=== PATIENT | female | born 1995 | race Hispanic/Latino ===

== ENCOUNTER 2018-09-10 17:41 | Emergency (ER) | payer OTHER, SELFPAY ==
[2018-09-10] MEDS ORDERED: ONDANSETRON 4 MG/2 ML VIAL ONE (18:26)
[2018-09-10] MEDS ORDERED: FAMOTIDINE 20 MG/2 ML VIAL IV ONE (18:26)
[2018-09-10] MEDS ORDERED: NA CHLORIDE 0.9% 1,000 ML ONE (18:26)
[2018-09-10 18:44] LABS: Absolute Lymphocytes (CBC) 3.5 K/uL (0.7-4.9); Absolute Monocytes 0.9 K/uL (0.1-1.3); Absolute Neutrophil 8.6 K/uL (1.8-8.0); Basophils % 1.1 % (0-1.3); Eosinophils % 2.6 % (0-4.4); Hematocrit 36.2 % (36.0-45.0); Lymphocytes % 25.9 % (15.3-44.8); MCH 26.1 pg (27.0-35.0); MCV 81.1 fL (80-100); MPV 9.3 fL (7.6-11.3); Monocytes % 6.7 % (3.3-12.3); RBC Red Blood Cell Count 4.47 M/uL (3.86-4.86)
[2018-09-10 18:59] LABS: ALT/SGPT 20 U/L (12-78); AST/SGOT 19 U/L (15-37); Albumin 3.2 g/dL (3.4-5.0); Alkaline Phosphatase 77 U/L (45-117); BUN Blood Urea Nitrogen 13 mg/dL (7-18); Bicarbonate 26 mmol/L (21-32); Bilirubin Direct < 0.1 mg/dL (0-0.2); Bilirubin Total 0.4 mg/dL (0.2-1.0); Glucose Level 90 mg/dL (74-106); Lipase 187 U/L (73-393); Potassium 3.8 mmol/L (3.5-5.1); Protein, Total 7.1 g/dL (6.4-8.2); Sodium Level 138 mmol/L (136-145)
[2018-09-10 19:33] LABS: Urine Blood NEGATIVE (NEG); Urine Glucose NEGATIVE (NEG); Urine Protein NEGATIVE (NEG); Urine pH 8.5 (5.0-7.0)
[2018-09-10] MEDS ORDERED: DICYCLOMINE HCL 10 MG CAP ONE (19:37)
[2018-09-10] MEDS ORDERED: MAGNE/ALUM HYDROXD 30 ML UCUP ONE (19:37)
[2018-09-10] MEDS ORDERED: LIDOCAINE VISCOUS 2% SOLN 15 ML UDC ONE (19:38)
--- NOTE | 2018-09-10 19:40 | RAD REPORT ---
EXAM DESCRIPTION: US - Abdomen Exam Limited - 09/10/2018 7:15 pm CLINICAL HISTORY: Abdominal pain. COMPARISON: None. FINDINGS: The gallbladder wall is not thickened. Multiple gallstones are present. Moderate amount o f sludge within the gallbladder is also noted The biliary tree is normal caliber. IMPRESSION: Cholelithiasis and gallbladder sludge without evidence of cholecystitis
[2018-09-10] MEDS ORDERED: KETOROLAC 30 MG/ML INJ ONE (20:08)
[2018-09-10 20:11] LABS: Urine Amorphous Sediment 1+ /HPF (NONE SEEN); Urine Bacteria <20 /HPF (<20); Urine Culture Reflex Order REFLEXED; Urine RBC <5 /HPF (NONE SEEN)
--- NOTE | 2018-09-10 20:28 | EDPHYS ---
Physician Documentation [facility] Name: Hallie Rasmussen Age: 22 yrs Sex: Female : 1995 Arrival Date: 09/10/2018 Time: 17:44 Bed 17 Private MD: None, None ED Physician Alok Baker HPI: 09/10 18:20 This 22 yrs old Female presents to ER via Ambulatory with complaints of cp Abdominal Pain. 18:20 The patient presents with abdominal pain in the epigastric area. Onset: The cp symptoms/episode began/occurred this morning. The symptoms radiate to back. Associated signs and symptoms: Pertinent positives: nausea, Pertinent negatives: blood in stools, chest pain, constipation, diarrhea, fever, active vomiting. The symptoms are described as constant. Severity of pain: in the emergency department the pain is unchanged despite home interventions. 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 - Social history:: Smoking status: Patient/guardian denies using tobacco. - Ebola Screening: : Patient denies travel to an Ebola-affected area in the 21 days before illness onset. ROS: 18:25 Constitutional: Negative for body aches, chills, fever, poor PO intake. cp 18:25 Eyes: Negative for injury, pain, redness, and discharge. cp 18:25 ENT: Negative for drainage from ear(s), ear pain, sore throat, difficulty swallowing, difficulty handling secretions. 18:25 Cardiovascular: Negative for chest pain, edema, palpitations. 18:25 Respiratory: Negative for cough, shortness of breath, wheezing. 18:25 Abdomen/GI: Positive for abdominal pain, nausea, diarrhea, Negative for vomiting, constipation, dysphagia, black/tarry stool, rectal bleeding. 18:25 Back: Positive for radiated pain, Negative for injury or acute deformity, decreased range of motion. 18:25 : Negative for urinary symptoms. 18:25 Skin: Negative for cellulitis, rash. 18:25 Neuro: Negative for altered mental status, dizziness, headache, weakness. 18:25 All other systems are negative. Exam: 18:33 Constitutional: The patient appears in no acute distress, alert, awake, non-toxic, well cp developed, well nourished. 18:33 Head/Face: Normocephalic, atraumatic. Eyes: Pupils equal round and reactive to light, cp extra-ocular motions intact. Lids and lashes normal. Conjunctiva and sclera are non-icteric and not injected. Cornea within normal limits. Periorbital areas with no swelling, redness, or edema. ENT: Nares patent. No nasal discharge, no septal abnormalities noted. Tympanic membranes are normal and external auditory canals are clear. Oropharynx with no redness, swelling, or masses, exudates, or evidence of obstruction, uvula midline. Mucous membranes moist. Chest/axilla: Normal chest wall appearance and motion. Nontender with no deformity. No lesions are appreciated. Cardiovascular: Regular rate and rhythm with a normal S1 and S2. No gallops, murmurs, or rubs. Normal PMI, no JVD. No pulse deficits. Respiratory: Lungs have equal breath sounds bilaterally, clear to auscultation and percussion. No rales, rhonchi or wheezes noted. No increased work of breathing, no retractions or nasal flaring. 18:33 Abdomen/GI: Inspection: abdomen appears normal, Bowel sounds: active, all quadrants, Palpation: soft, in all quadrants, moderate abdominal tenderness, in the epigastric area and right upper quadrant, rebound tenderness, is not appreciated, involuntary guarding, is not appreciated. 18:33 Back: ROM is normal. 18:33 Skin: cellulitis, is not appreciated, no rash present. 18:33 Neuro: Orientation: to person, place \T\ time. Mentation: is normal, Cerebellar function: is grossly normal, Motor: moves all fours, strength is normal, Sensation: is normal. Vital Signs: 17:50 BP 136 / 90; Pulse 82; Resp 18; Temp 97.1; Pulse Ox 97% on R/A; Weight 77.11 kg (R); aj1 Height 5 ft. 3 in. (160.02 cm) (R); Pain 7/10; 18:33 BP 116 / 71; Pulse 65; Resp 16; Pulse Ox 100% on R/A; Pain 7/10; em 19:30 BP 134 / 92; Pulse 57; Resp 18; Pulse Ox 100% on R/A; jb4 20:41 BP 117 / 86; Pulse 72; Resp 16; Pulse Ox 98% on R/A; jb4 17:50 Body Mass Index 30.11 (77.11 kg, 160.02 cm) aj1 MDM: 17:53 Patient medically screened. cp 18:30 Differential diagnosis: cholecystitis, Cholelithiasis, gastritis, pancreatitis, Peptic cp Ulcer Disease, Perf. Duodenal Ulcer, Ureterolithiasis, urinary tract infection. 20:26 Data reviewed: vital signs, nurses notes, lab test result(s), radiologic studies, cp ultrasound. Response to treatment: the patient's symptoms have markedly improved after treatment, and as a result, I will discharge patient. 09/10 18:14 Order name: Basic Metabolic Panel 09/10 18:14 Order name: CBC with Diff; Complete Time: 19:03 cp 09/10 19:03 Interpretation: Normal except: WBC 13.5; HGB 11.7; MCV 81.1; MCH 26.1; RDW 16.3; NEUT A cp 8.6. 09/10 18:14 Order name: Creatinine for Radiology; Complete Time: 19:03 cp 09/10 18:14 Order name: Hepatic Function; Complete Time: 19:03 cp 09/10 19:14 Interpretation: Normal except: ALB 3.2; GLOB 3.9; A/G 0.8. 09/10 18:14 Order name: Lipase; Complete Time: 19:03 cp 09/10 19:03 Interpretation: Within normal limits: LIP 187. 09/10 18:15 Order name: Basic Metabolic Panel; Complete Time: 19:03 EDCT 09/10 19:43 Interpretation: Reviewed. 09/10 18:19 Order name: US Abdomen Limited; Complete Time: 19:42 cp 09/10 18:22 Order name: Urine Dipstick--Ancillary (enter results); Complete Time: 19:42 gm 09/10 19:43 Interpretation: Normal except: UPH 8.5; UESTR TRACE. cp 09/10 18:23 Order name: Urine --Ancillary (enter results); Complete Time: 19:42 gm 09/10 19:12 Order name: Urine Microscopic Only; Complete Time: 20:13 em 09/10 20:13 Interpretation: Normal except: UWBC 5-10; SQEPI 5-10. cp 09/10 20:12 Order name: Urine Culture EDCT 09/10 18:14 Order name: IV Saline Lock; Complete Time: 18:16 cp 09/10 18:14 Order name: Labs collected and sent; Complete Time: 18:16 cp 09/10 18:14 Order name: Urine Dipstick-Ancillary (obtain specimen); Complete Time: 18:16 cp 09/10 18:14 Order name: Urine Test (obtain specimen); Complete Time: 18:16 cp 09/10 19:45 Order name: PO challenge; Complete Time: 20:04 cp Administered Medications: 18:31 Drug: Zofran 4 mg Route: IVP; Site: right antecubital; hb 20:35 Follow up: Response: No adverse reaction; Nausea is decreased jb4 18:31 Drug: Pepcid 20 mg Route: IVP; Site: right antecubital; hb 20:33 Follow up: Response: No adverse reaction jb4 18:33 Drug: NS 0.9% 1000 ml Route: IV; Rate: 1 bolus; Site: right antecubital; em 20:35 Follow up: Response: No adverse reaction; IV Status: Completed infusion jb4 19:35 Drug: Bentyl 20 mg Route: PO; jb4 20:32 Follow up: Response: No adverse reaction; Pain is decreased jb4 19:36 Drug: GI Cocktail without - (Maalox Suspension 30 ml, Lidocaine Liquid 2 % 15 jb4 ml) Route: PO; 20:32 Follow up: Response: No adverse reaction; Pain is decreased jb4 20:04 Drug: TORadol 30 mg Route: IVP; Site: right antecubital; jb4 20:32 Follow up: Response: No adverse reaction; Pain is decreased jb4 Disposition: 09/10/18 20:27 Discharged to Home. Impression: Cholelithiasis. - Condition is Stable. - Discharge Instructions: Biliary Colic, Adult, Cholelithiasis. - Prescriptions for Bentyl 20 mg Oral Tablet - take 1 tablet by ORAL route every 6 hours As needed; 20 tablet. Ibuprofen 800 mg Oral Tablet - take 1 tablet by ORAL route every 8 hours As needed take with food; 30 tablet. Zofran 4 mg Oral Tablet - take 1 tablet by ORAL route every 12 hours As needed; 20 tablet. - Medication Reconciliation Form, Thank You Letter, Antibiotic Education, Prescription Opioid Use, Work release form form. - Follow up: Adi Varghese MD; When: 1 - 2 days; Reason: Recheck today's complaints. - Problem is new. - Symptoms have improved. Addendum: 09/12/2018 04:08 Co-signature as Attending Physician, Alok Baker MD I agree with the assessment and w a plan of care. Signatures: Dispatcher [employer] Leticia Ross, RN RN aj1 Delbert Alejandre, MOTOR VEHICLE LECTURER MOTOR VEHICLE LECTURER em Rahul Rocha PA PA cp Chanell Flanagan RN RN Alphonse Meadows RN RN jb4 Alok Baker MD MD tn Corrections: (The following items were deleted from the chart) 09/10 20:43 20:27 09/10/2018 20:27 Discharged to Home. Impression: Cholelithiasis. Condition is jb4 Stable. Forms are Medication Reconciliation Form, Thank You Letter, Antibiotic Education, Prescription Opioid Use. Follow up: Adi Varghese; When: 1 - 2 days; Reason: Recheck today's complaints. Problem is new. Symptoms have improved. cp
--- NOTE | 2018-09-10 20:28 | ER ---
Nurse's Notes [facility] Name: Hallie Rasmussen Age: 22 yrs Sex: Female : 1995 Arrival Date: 09/10/2018 Time: 17:44 Bed 17 Private MD: None, None Diagnosis: Cholelithiasis Presentation: 09/10 17:47 Presenting complaint: Patient states: Abdominal pain, reports that she has a history of aj1 gallstones, states that pain usually goes away pretty fast but the pain has lasted all day today. Reports diarrhea, nausea. Denies vomiting, fever. Transition of care: patient was not received from another setting of care. Onset of symptoms was September 10, 2018. Risk Assessment: Do you want to hurt yourself or someone else? Patient reports no desire to harm self or others. Initial Sepsis Screen: Does the patient meet any 2 criteria? No. Patient's initial sepsis screen is negative. Does the patient have a suspected source of infection? Yes: Acute abdominal pain. Care prior to arrival: None. 17:47 Method Of Arrival: Ambulatory aj1 17:47 Acuity: KERA 3 aj1 Triage Assessment: 17:50 General: Appears in no apparent distress. comfortable, Behavior is calm, cooperative, aj1 appropriate for age. Pain: Complains of pain in epigastric area Pain currently is 7 out of 10 on a pain scale. Neuro: Level of Consciousness is awake, alert, obeys commands. Cardiovascular: Patient's skin is warm and dry. Respiratory: Airway is patent Respiratory effort is even, unlabored, Respiratory pattern is regular, symmetrical. GI: Reports upper abdominal pain. 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 - Social history:: Smoking status: Patient/guardian denies using tobacco. - Ebola Screening: : Patient denies travel to an Ebola-affected area in the 21 days before illness onset. Screenin:10 Abuse screen: Denies threats or abuse. Nutritional screening: No deficits noted. em Tuberculosis screening: No symptoms or risk factors identified. Fall Risk None identified. Assessment: 18:10 General: Appears in no apparent distress. comfortable, Behavior is calm, cooperative, em Denies fever. Pain: Complains of pain in right upper quadrant Pain currently is 7 out of 10 on a pain scale. Quality of pain is described as radiating, sharp. Neuro: Level of Consciousness is awake, alert, obeys commands, Oriented to person, place, time, situation. Cardiovascular: Capillary refill < 3 seconds Patient's skin is warm and dry. Respiratory: Airway is patent Respiratory effort is even, unlabored, Respiratory pattern is regular, symmetrical. GI: Abdomen is round non-distended, Bowel sounds present X 4 quads. Abd is soft X 4 quads Abdomen is tender to palpation in right upper quadrant and left upper quadrant Reports upper abdominal pain, nausea, Patient currently denies vomiting, reports hx of gallstones. : Urine is clear. EENT: No signs and/or symptoms were reported regarding the EENT system. Derm: Skin is intact, Skin is pink, warm \T\ dry. Musculoskeletal: Range of motion: intact in all extremities. 18:15 Reassessment: I agree with previous assessment. hb 19:15 Reassessment: Patient appears in no apparent distress at this time. Patient and/or jb4 family updated on plan of care and expected duration. Pain level reassessed. Patient is alert, oriented x 3, equal unlabored respirations, skin warm/dry/pink. Cardiovascular: Patient's skin is warm and dry. Respiratory: Airway is patent Respiratory effort is even, unlabored, Respiratory pattern is regular, symmetrical. 20:41 Reassessment: Patient appears in no apparent distress at this time. Patient and/or jb4 family updated on plan of care and expected duration. Pain level reassessed. Patient is alert, oriented x 3, equal unlabored respirations, skin warm/dry/pink. Patient states feeling better. Vital Signs: 17:50 BP 136 / 90; Pulse 82; Resp 18; Temp 97.1; Pulse Ox 97% on R/A; Weight 77.11 kg (R); aj1 Height 5 ft. 3 in. (160.02 cm) (R); Pain 7/10; 18:33 BP 116 / 71; Pulse 65; Resp 16; Pulse Ox 100% on R/A; Pain 7/10; em 19:30 BP 134 / 92; Pulse 57; Resp 18; Pulse Ox 100% on R/A; jb4 20:41 BP 117 / 86; Pulse 72; Resp 16; Pulse Ox 98% on R/A; jb4 17:50 Body Mass Index 30.11 (77.11 kg, 160.02 cm) aj1 ED Course: 17:44 Patient arrived in ED. sb2 17:44 None, None is Private Physician. sb2 17:50 Triage completed. aj1 17:50 Arm band placed on Patient placed in an exam room. aj1 17:53 Rahul Rocha PA is PHCP. cp 17:53 Alok Baker MD is Attending Physician. cp 17:59 Delbert Alejandre LVN is Primary Nurse. em 18:10 Patient has correct armband on for positive identification. Placed in gown. Bed in low em position. Call light in reach. 18:10 No provider procedures requiring assistance completed. em 19:13 US Abdomen Limited In Process Unspecified. EDMS 20:27 Adi Varghese MD is Referral Physician. cp 20:41 IV discontinued, intact, bleeding controlled. jb4 Administered Medications: 18:31 Drug: Zofran 4 mg Route: IVP; Site: right antecubital; hb 20:35 Follow up: Response: No adverse reaction; Nausea is decreased jb4 18:31 Drug: Pepcid 20 mg Route: IVP; Site: right antecubital; hb 20:33 Follow up: Response: No adverse reaction jb4 18:33 Drug: NS 0.9% 1000 ml Route: IV; Rate: 1 bolus; Site: right antecubital; em 20:35 Follow up: Response: No adverse reaction; IV Status: Completed infusion jb4 19:35 Drug: Bentyl 20 mg Route: PO; jb4 20:32 Follow up: Response: No adverse reaction; Pain is decreased jb4 19:36 Drug: GI Cocktail without - (Maalox Suspension 30 ml, Lidocaine Liquid 2 % 15 jb4 ml) Route: PO; 20:32 Follow up: Response: No adverse reaction; Pain is decreased jb4 20:04 Drug: TORadol 30 mg Route: IVP; Site: right antecubital; jb4 20:32 Follow up: Response: No adverse reaction; Pain is decreased jb4 Outcome: 20:27 Discharge ordered by . cp 20:41 Discharged to home ambulatory. jb4 20:41 Condition: stable 20:41 Discharge instructions given to patient, Instructed on discharge instructions, follow up and referral plans. medication usage, Demonstrated understanding of instructions, follow-up care, medications, Prescriptions given X 3. 20:43 Patient left the ED. jb4 Signatures: Dispatcher [employer] Leticia Ross RN RN aj1 Delbert Alejandre, CUSTOM SHOP WORKER CUSTOM SHOP WORKER Rahul Cross PA PA cp Baxter, Heather, RN RN Alphonse Medaows RN RN jb4 Adelina Zaragoza sb2
[2018-09-10 20:58] VITALS: TEMP 97.1
[2018-09-10 21:01] VITALS: BP 117/86; O2SAT 98
== END 2018-09-10 20:43 | disposition home or self-care (01) ==
LOC: ER 17:41
DX: K80.20 Calculus of gallbladder without cholecystitis without obstruction (principal)
CPT/HCPCS: 36415; 76705; 80048; 80076; 81003; 81015; 81025; 83690; 85025; 87086; 87088; 96361; 96374; 96375; 99283; J2405; J7030

== ENCOUNTER 2019-09-19 16:40 | Emergency (ER) | payer SELFPAY ==
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
--- OUTSIDE RECORDS SUMMARY | 2019-09-19 16:42 | XMS REPORT ---
:1995 Author Organization [facility] Address [address] [place] [address] [address] [place] [address] Care Team Providers Name Role Phone Unavailable Unavailable Unavailable Problems This patient has no known problems. Allergies, Adverse Reactions, Alerts This patient has no known allergies or adverse reactions. Medications This patient has no known medications.
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
--- OUTSIDE RECORDS SUMMARY | 2019-09-19 16:44 | XMS REPORT | Summary of Care ---
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 procedure: Primary Lower uterine tranverse section with no extension - Skin incision: pfannenstiel - Closure: sutures - Estimated blood loss: 700 mL - Intraoperative Complications: none - Clinical trials: none - Urine output: 1.3 cc/kg/hr - Preop H/H: 9.1/31.6 - Postop H/H: 7.6/.4 Anemia: -Preop H/H 9.1/31.6, Postop H/H 7.6/26.4 -VSS BP:100-110s/50-60s, P: 70-80s, RR:18, T:36.8 -Denies s/s of anemia -Vit C, Folic Acid, and Iron supplementation ordered for pp Antepartum course reviewed - 1 h 108, sero neg, Ri, VZVi, O+/neg, GBS neg, Pap NIL 2018 - H/H, plt: 9.1 / 31.6, 211 on 06/02/19 - [facility] Postoperative care: - Diet: Advance as tolerated - Fluid: Encourage oral intake - Activity: Encourage ambulation and incentive spirometry - Pain: Neligh and Ibuprofen - DVT prophylaxis: SCDs and TEDs when not ambulating Discharge Planning - Contraception: IUD, will discuss with provider at visit - Vaccines: Not indicated - Follow up in 5-7 days for incision check and/or staple removal at [facility] - Follow Up: follow-up in 3-6 weeks at [facility] - Dispo: Anticipate discharge POD#1 Baby's Status - APGARs 8 , 9 - Weight: 2885 g - Location: rooming with mom - Female Dispo: Patient is POD#1. She needs to meet the following milestones: passing flatus. Anticipate discharge today on POD#1. Lamar Gallo MDElectronically signed by Lamar Gallo MD at 2018 6:53 AM Agueda Pickett MD - 06/20/2019 4:36 AM CDTR1 Progress Note Post-op Hgb 7.6, from 9.5 pre-op. Asymptomatic, VSS. UOP adequate. On exam, abdomen is appropriatelytender, fundus firm and at umbilicus. Continue to monitor. Agueda Colby MD 06/20/2019 4:37 AM documented in this encounter Plan of Treatment Date Type Specialty Care Team Description 06/25/2019 Nurse Visit OB Satellites Visit, [facility] Nurse 07/12/2019 Routine Visit OB Satellites Zbigniew Singh, SHAKER OPERATOR [address] [place] [address] [phone] Name Type Priority Associated Diagnoses Order Schedule Rho (D) Immune Globulin LAB Routine ONCE for 1 Occurrences starting 06/19/2019 until 06/19/2019 Health Maintenance Due Date Last Done Comments [...] Procedure Name Priority Date/Time Associated Diagnosis Comments CBC WITH DIFFERENTIAL Routine 06/20/2019 3:25 Results for this AM CDT procedure are in the results section. CBC WITH DIFF Routine 06/20/2019 3:25 Results for this AM CDT procedure are in the results section. VENOUS CORD GAS MARCELLO 06/19/2019 6:35 Results for this AM CDT procedure are in the results section. ARTERIAL CORD GAS MARCELLO 06/19/2019 6:35 Results for this AM CDT procedure are in the results section. GALV ONLY - SYPHILIS MARCELLO 06/19/2019 6:04 Results for this IGG/IGM AM CDT procedure are in the results section. CBC WITH DIFFERENTIAL MARCELLO 06/19/2019 6:04 Results for this AM CDT procedure are in the results section. TYPE AND SCREEN Routine 06/19/2019 6:04 Results for this AM CDT procedure are in the results section. TYPE AND SCREEN Routine 06/19/2019 6:04 Results for this AM CDT procedure are in the results section. HEPATITIS B SURFACE MARCELLO 06/19/2019 6:04 Results for this ANTIGEN AM CDT procedure are in the results section. CBC WITH DIFF MARCELLO 06/19/2019 6:04 Results for this AM CDT procedure are in the results section. SECTION 06/19/2019 5:52 @38.5 wks, AM CDT primary c/s for cord presentation documented in this encounter Results CBC WITH DIFFERENTIAL (06/20/2019 3:25 AM CDT) WBC 14.32 (H) 4.30 - 11.10 [facility] 10*3/L SERVICES RBC 3.35 (L) 3.93 - 5.25 [facility] 10*6/L SERVICES HGB 7.6 (L) 11.6 - 15.0 [facility] g/dL SERVICES HCT 26.4 (L) 35.7 - 45.2 % [facility] MCV 78.8 (L) 80.6 - 95.5 fL [facility] MCH 22.7 (L) 25.9 - 32.8 pg [facility] MCHC 28.8 (L) 31.6 - 35.1 [facility] g/dL SERVICES RDW-SD 47.8 39.0 - 49.9 fL [facility] RDW-CV 16.6 (H) 12.0 - 15.5 % [facility] PLT 174 166 - 358 [facility] 10*3/L SERVICES MPV 11.6 9.5 - 12.9 fL [facility] NRBC/100 WBC 0.0 0.0 - 10.0 /100 [facility] WBCs SERVICES NRBC x10^3 <0.01 10*3/L [facility] GRAN MAT (NEUT) % 74.2 % [facility] IMM GRAN % 1.00 % [facility] LYMPH % 16.0 % [facility] MONO % 7.8 % [facility] EOS % 0.7 % [facility] BASO % 0.3 % [facility] GRAN MAT x10^3(ANC) 10.64 (H) 1.88 - 7.09 [facility] 10*3/uL SERVICES IMM GRAN x10^3 0.14 (H) 0.00 - 0.06 [facility] 10*3/uL SERVICES LYMPH x10^3 2.29 1.32 - 3.29 [facility] 10*3/uL SERVICES MONO x10^3 1.11 (H) 0.33 - 0.92 [facility] 10*3/uL SERVICES EOS x10^3 0.10 0.03 - 0.39 [facility] 10*3/uL SERVICES BASO x10^3 0.04 0.01 - 0.07 [facility] 10*3/uL SERVICES Specimen Blood - HAND, LEFT Performing Organization Address City/State/Zipcode Phone Number [facility] CLIA: [id number], [address] [place] [address] [facility] Venous Cord Gas (06/19/2019 6:35 AM CDT) VENOUS BASE EXCESS, -4.5 mEq/L [facility] CORD SERVICES VENOUS PH, CORD 7.31 7.25 - 7.45 [facility] VENOUS PC02, CORD 44 27 - 49 mmHg [facility] VENOUS PO2, CORD 31 17 - 41 mmHg [facility] VENOUS BICARBONATE, 22 12 - 29 mEq/L [facility] CORD SERVICES Specimen Blood - CORD Performing Organization Address City/[facility]/Zipcode Phone Number [facility] CLIA: [id number], [address] [place] [address] [phone] [facility] Arterial Cord Gas (06/19/2019 6:35 AM CDT) Pathologist [facility] BASE EXCESS, CORD -4.8 mEq/L [facility] AC PH, CORD (BEAKER) 7.24 7.18 - 7.38 [facility] PC02, CORD 56 32 - 66 mmHg [facility] PO2, CORD 12 10 - 30 mmHg [facility] BICARBONATE, CORD 23 17 - 27 mEq/L [facility] Specimen Blood - CORD Performing Organization Address City/State/Zipcode Phone Number [facility] CLIA: [id number], [address] [place] [address] [facility] Type and Screen - ONCE Routine (06/19/2019 6:04 AM CDT) [facility] ABO & RH O POSITIVE LAB Comment: Performed at [facility] Laboratory Services - [facility] Blood [place] [address] Toll Free: [phone] CLIA No. [id number] Status Information Canceled LAB Comment: Performed at [facility] Laboratory Services - [facility] Blood [place] [address] Toll Free: [phone] CLIA No. [id number] Specimen Blood - VENOUS Performing Organization Address City/State/Zipcode Phone Number [facility] CBC WITH DIFFERENTIAL (06/19/2019 6:04 AM CDT) Pathologist [facility] WBC 14.72 (H) 4.30 - 11.10 [facility] 10*3/L SERVICES RBC 4.09 3.93 - 5.25 [facility] 10*6/L SERVICES HGB 9.5 (L) 11.6 - 15.0 [facility] g/dL SERVICES HCT 32.1 (L) 35.7 - 45.2 % [facility] MCV 78.5 (L) 80.6 - 95.5 fL [facility] MCH 23.2 (L) 25.9 - 32.8 pg [facility] MCHC 29.6 (L) 31.6 - 35.1 [facility] g/dL SERVICES RDW-SD 47.0 39.0 - 49.9 fL [facility] RDW-CV 16.6 (H) 12.0 - 15.5 % [facility] PLT 228 166 - 358 [facility] 10*3/L SERVICES MPV 11.6 9.5 - 12.9 fL [facility] NRBC/100 WBC 0.0 0.0 - 10.0 /100 [facility] WBCs SERVICES NRBC x10^3 <0.01 10*3/L [facility] GRAN MAT (NEUT) % 68.7 % [facility] IMM GRAN % 1.00 % [facility] LYMPH % 21.6 % [facility] MONO % 7.2 % [facility] EOS % 0.9 % [facility] BASO % 0.6 % [facility] GRAN MAT x10^3(ANC) 10.12 (H) 1.88 - 7.09 [facility] 10*3/uL SERVICES IMM GRAN x10^3 0.14 (H) 0.00 - 0.06 [facility] 10*3/uL SERVICES LYMPH x10^3 3.18 1.32 - 3.29 [facility] 10*3/uL SERVICES MONO x10^3 1.06 (H) 0.33 - 0.92 [facility] 10*3/uL SERVICES EOS x10^3 0.13 0.03 - 0.39 [facility] 10*3/uL SERVICES BASO x10^3 0.09 (H) 0.01 - 0.07 [facility] 10*3/uL SERVICES Specimen Blood - VENOUS Performing Organization Address City/State/Zipcode Phone Number [facility] CLIA: [id number], [address] [place], [place] [address] [facility] Type and Screen - ONCE Routine (06/19/2019 6:04 AM CDT) ABO & RH O POSITIVE LAB Comment: Performed at [facility] Laboratory Services - [place] [address] Toll Free: [phone] CLIA No. [id number] IAT Negative LAB Comment: Performed at [facility] Laboratory Services - [place] [id number] Toll Free: [phone] CLIA No. [id number] Specimen Blood - VENOUS Performing Organization Address City/[facility]/Zipcode Phone Number [facility] GALV ONLY - SYPHILIS IGG/IGM (06/19/2019 6:04 AM CDT) Syphilis IgG/IgM Non-reactive Non-reactive [facility] Specimen Blood - VENOUS Narrative Performed At Non-reactive - No serologic evidence of T. pallidum [facility] infection. Cannot exclude incubating or early syphilis. Submit a second specimen in 2-4 weeks if syphilis is clinically suspected. Equivocal - Further testing to follow. Reactive - Further testing to follow. Performing Organization Address City/[facility] Phone Number [facility] CLIA: [id number], [address] [place] [address] [facility] Hepatitis B Surface Antigen (06/19/2019 6:04 AM CDT) HBsAg HEPATITIS B Negative [facility] SURFACE ANTIGEN SERVICES NEGATIVE HBsAg 0.05 [facility] Semi-Quantitative SERVICES Specimen Blood - VENOUS Performing Organization Address [facility] Phone Number [facility] CLIA: [id number], [address] [place] [address] [facility] documented in this encounter Visit Diagnoses Diagnosis S/P section - Primary Other postprocedural status 38 weeks gestation of state, incidental Obesity (BMI 30-39.9) Obesity, unspecified Funic presentation Prolapse of cord, complicating labor and delivery, unspecified as to episode of care Normal labor documented in this encounter Administered Medications Medication Order MAR Action Action Date Dose Rate Site ascorbic acid (vitamin C) Given 06/21/2019 8:24 AM CDT 500 mg (VITAMIN C) tablet 500 mg 500 mg, Oral, BID, First dose on 06/20/19 at 0800, Until Discontinued, Routine Given 06/20/2019 8:30 PM CDT 500 mg Given 06/20/2019 1:16 PM CDT 500 mg docusate calcium (SURFAK) capsule 240 mg Given 06/21/2019 8:24 AM CDT 240 mg 240 mg, Oral, QDAILYPRN, Starting 06/19/19 at 1210, Until Discontinued, Routine, Constipation Given 06/20/2019 8:30 PM CDT 240 mg Given 06/19/2019 7:10 PM CDT 240 mg ferrous sulfate tablet 325 mg Given 06/21/2019 8:24 AM CDT 325 mg 325 mg, Oral, BID, First dose on 06/20/19 at 0800, Until Discontinued, Routine Given 06/20/2019 8:30 PM CDT 325 mg Given 06/20/2019 1:17 PM CDT 325 mg HYDROcodone-acetaminophen (NORCO 5) 5-325 Given 06/21/2019 4:36 AM CDT 1 tablet mg tablet 1 tablet 1 tablet, Oral, Q6HPRN, Starting 06/19/19 at 1210, Until Discontinued, Routine, Pain (scale 4-6), If uncontrolled by Ibuprofen Given 06/21/2019 3:29 AM CDT 1 tablet HYDROcodone-acetaminophen (NORCO 5) 5-325 Given 06/20/2019 5:18 PM CDT 2 tablets mg tablet 2 tablet 2 tablet, Oral, Q6HPRN, Starting 06/19/19 at 1210, Until Discontinued, Routine, Pain (scale 7-10), If uncontrolled by Ibuprofen Given 06/19/2019 7:10 PM CDT 2 tablets ibuprofen (IBU) tablet 600 mg Given 06/21/2019 3:29 AM CDT 600 mg 600 mg, Oral, Q6HPRN, Starting 06/19/19 at 1210, Until Discontinued, Routine, Pain (scale 1-3) Given 06/20/2019 5:18 PM CDT 600 mg Given 06/20/2019 3:20 AM CDT 600 mg magnesium hydroxide (MILK OF MAGNESIA) 400 Given 06/20/2019 8:30 PM CDT 30 mL mg/5 mL suspension 30 mL 30 mL, Oral, QDAILYPRN, Starting 06/19/19 at 1210, Until Discontinued, Routine, Constipation nalbuphine (NUBAIN) injection 5 mg 5 mg, Intravenous, PRN, 1 dose, Starting 06/19/19 at 0736, Until Discontinued, Routine, Itching, PACU simethicone (GAS RELIEF) chewable tablet 160 Given 06/20/2019 8:30 PM CDT 160 mg mg 160 mg, Oral, PC+HSPRN, Starting 06/19/19 at 1210, Until Discontinued, Routine, Gas Given 06/19/2019 7:09 PM CDT 160 mg Medication Order MAR Action Action Date Dose Rate Site ceFAZolin in dextrose (iso-os) Given 06/19/2019 6:09 AM CDT 2 g (ANCEF) 2 gram/100 mL Piggyback 2 g 2 g (2,000 mg), IV Piggyback, O.R. HOLDING ONCE, 1 dose, Starting 06/19/19 at 0601, Until 06/19/19 at 0609, 100 mL, Reason for Anti-Infective: Surgical Prophylaxis, Surgical Prophylaxis: HARMONICA MAKER, Duration of therapy: within 24 hours of surgery human papillomav vac,9-griselda(PF) Given 06/20/2019 5:18 PM CDT 0.5 mL Left Deltoid-IM (GARDASIL 9 (PF)) vial 0.5 mL 0.5 mL, Intramuscular, ONCE-PRIOR TO DISCHARGE, 1 dose, Starting 06/19/19 at 1210, Until 06/20/19 at 1718, Routine, Give vaccine prior to discharge ketorolac (TORADOL) injection 30 mg Given 06/19/2019 9:04 AM CDT 30 mg 30 mg, Slow IV Push, PRN, 1 dose, Starting 06/19/19 at 0736, Until 06/19/19 at 0904, Routine, Pain (scale 7-10), PACU, hotel staff member approving Restricted medication: BRAEDEN TORRES lactated ringers IV infusion New Bag 06/19/2019 5:20 PM CDT 1,000 mL 125 mL/hr 1,000 mL at 125 mL/hr, 1,000 mL, IV Infusion, ONCE, 1 dose, 06/19/19 at 1215, Routine LR 1000 mL + oxytocin 20 units IV New Bag 06/19/2019 7:46 AM CDT 125 mL/ hr Solution at 125 mL/hr, IV Infusion, CONTINUOUS, Starting 06/19/19 at 0715, Until 06/19/19 at 1210, MARCELLO ondansetron (ZOFRAN (PF)) injection 4 mg Given 06/19/2019 7:45 AM CDT 4 mg 4 mg, Slow IV Push, ONCE, 1 dose, 06/19/19 at 0745, Routine, PACU sodium citrate-citric acid (BICITRA) 500-334 Given 06/19/2019 6:06 AM CDT 30 mL mg/5 mL solution 30 mL 30 mL, Oral, PRE-PROCEDURE ONCE, 1 dose, Starting 06/19/19 at 0601, Until 06/19/19 at 0606, Routine, Surgery/Procedure documented in this encounter Insurance Payer Benefit Plan / Subscriber ID Effective Phone Address Type Group Dates [facility] xxxxxxxxx 2018-[employer]ao [employer] [place] [employer] [id number] MANAGED MEDICAID [place], [place] MED[place] [id number] (Home) [address] [place] [address] documented as of this encounter Advance Directives Type Date Recorded 

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
[2019-09-19 17:45] LABS: Urine Blood 2+ (NEG); Urine Glucose NEGATIVE (NEG); Urine Protein NEGATIVE (NEG); Urine pH 7.5 (5.0-7.0)
--- NOTE | 2019-09-19 18:52 | EDPHYS ---
Physician Documentation [facility] Name: Hallie Rasmussen Age: 23 yrs Sex: Female : 1995 Arrival Date: 09/19/2019 Time: 16:42 Bed 13 Private MD: ED Physician Rahul Eugene HPI: 09/19 18:21 This 23 yrs old Female presents to ER via Ambulatory with complaints of kb Vaginal Bleeding, Chest Pain. 18:21 The patient presents with vaginal bleeding that is heavy, with clots. Onset: The kb symptoms/episode began/occurred 3 day(s) ago. Modifying factors: The symptoms are alleviated by nothing, the symptoms are aggravated by nothing. Associated signs and symptoms: Pertinent positives: vaginal bleeding. Severity of symptoms: At their worst the symptoms were moderate, in the emergency department the symptoms are unchanged. The patient has experienced similar episodes in the past. The patient has not recently seen a physician. Pt reports she has always had heavy periods with clots. This one started 3 days ago and she is having cramps with it. Also reports 3 episodes of chest pain over the last week that resolved after "calming down.". MEDICAL TRANSCRIPTION RADIOLOGY: 17:05 LMP 09/16/2019 aa5 Historical: - Allergies: 17:05 No Known Allergies; aa5 - PMHx: 17:05 GALLSTONES; aa5 - PSHx: 17:05 None; aa5 - Immunization history:: Adult Immunizations up to date. - Social history:: Smoking status: Patient uses tobacco products, 2-3 cigarettes a day . - Ebola Screening: : No symptoms or risks identified at this time. ROS: 18:20 Constitutional: Negative for fever, chills, and weight loss, ENT: Negative for injury, kb pain, and discharge, Neck: Negative for injury, pain, and swelling, Respiratory: Negative for shortness of breath, cough, wheezing, and pleuritic chest pain, Abdomen/GI: Negative for abdominal pain, nausea, vomiting, diarrhea, and constipation, Back: Negative for injury and pain, MS/Extremity: Negative for injury and deformity, Skin: Negative for injury, rash, and discoloration, Neuro: Negative for headache, weakness, numbness, tingling, and seizure. 18:20 Cardiovascular: Positive for chest pain, Negative for edema, orthopnea, palpitations, paroxysmal nocturnal dyspnea. 18:20 : Positive for vaginal bleeding. Exam: 18:20 Constitutional: This is a well developed, well nourished patient who is awake, alert, kb and in no acute distress. Head/Face: Normocephalic, atraumatic. ENT: Nares patent. No nasal discharge, no septal abnormalities noted. Tympanic membranes are normal and external auditory canals are clear. Oropharynx with no redness, swelling, or masses, exudates, or evidence of obstruction, uvula midline. Mucous membranes moist. Neck: Trachea midline, no thyromegaly or masses palpated, and no cervical lymphadenopathy. Supple, full range of motion without nuchal rigidity, or vertebral point tenderness. No Meningismus. Chest/axilla: Normal chest wall appearance and motion. Nontender with no deformity. No lesions are appreciated. Cardiovascular: Regular rate and rhythm with a normal S1 and S2. No gallops, murmurs, or rubs. Normal PMI, no JVD. No pulse deficits. Respiratory: Lungs have equal breath sounds bilaterally, clear to auscultation and percussion. No rales, rhonchi or wheezes noted. No increased work of breathing, no retractions or nasal flaring. Abdomen/GI: Soft, non-tender, with normal bowel sounds. No distension or tympany. No guarding or rebound. No evidence of tenderness throughout. Back: No spinal tenderness. No costovertebral tenderness. Full range of motion. Skin: Warm, dry with normal turgor. Normal color with no rashes, no lesions, and no evidence of cellulitis. MS/ Extremity: Pulses equal, no cyanosis. Neurovascular intact. Full, normal range of motion. Neuro: Awake and alert, GCS 15, oriented to person, place, time, and situation. Cranial nerves II-XII grossly intact. Motor strength 5/5 in all extremities. Sensory grossly intact. Cerebellar exam normal. Normal gait. Vital Signs: 17:05 BP 127 / 88; Pulse 86; Resp 16 S; Temp 98.2(TE); Pulse Ox 100% on R/A; Weight 68.04 kg aa5 (R); Height 5 ft. 1 in. (154.94 cm) (R); Pain 4/10; 18:00 rb1 17:05 Body Mass Index 28.34 (68.04 kg, 154.94 cm) aa5 18:00 pt. is not in her room rb1 MDM: 17:08 Patient medically screened. kb 18:20 Data reviewed: vital signs, nurses notes. Data interpreted: Pulse oximetry: on room air kb is 100 %. Interpretation: normal. 09/19 17:29 Order name: Urine --Ancillary (enter results); Complete Time: 17:55 kb 09/19 17:29 Order name: Urine Dipstick--Ancillary (enter results); Complete Time: 17:55 kb 09/19 17:09 Order name: Urine Dipstick-Ancillary (obtain specimen) kb 09/19 17: Order name: IV Start kb 09/19 17: Order name: EKG - Nurse/Tech kb Administered Medications: No medications were administered Disposition: 09/19/19 18:51 Patient left the facility after being seen by provider. - Patient left due to unknown. Addendum: 09/21/2019 07:01 Co-signature as Attending Physician, Rahul Eugene MD I agree with the assessment and c mishra plan of care. Signatures: Dispatcher [employer] Rebecca Keys, EXHAUSTER-C EXHAUSTER-Ckb Rahul Eugene MD MD cha Calderon, Audri, RN RN aa5
--- NOTE | 2019-09-19 18:52 | ER ---
Nurse's Notes [facility] Name: Hallie Rasmussen Age: 23 yrs Sex: Female : 1995 Arrival Date: 09/19/2019 Time: 16:42 Bed 13 Private MD: Diagnosis: Presentation: 09/19 17:02 Presenting complaint: Patient states: heavy bleeding with clots that began 3 days ago. aa5 Pt also c/o abdominal cramping and diarrhea. Pt also reports chest pain that began 1 week ago. Transition of care: patient was not received from another setting of care. Onset of symptoms was September 2019. Risk Assessment: Do you want to hurt yourself or someone else? Patient reports no desire to harm self or others. Initial Sepsis Screen: Does the patient meet any 2 criteria? No. Patient's initial sepsis screen is negative. Does the patient have a suspected source of infection? No. Patient's initial sepsis screen is negative. Care prior to arrival: None. 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 - Social history:: Smoking status: Patient uses tobacco products, 2-3 cigarettes a day . - Ebola Screening: : No symptoms or risks identified at this time. Screenin:11 Abuse screen: Denies threats or abuse. Nutritional screening: No deficits noted. rb1 Tuberculosis screening: No symptoms or risk factors identified. Fall Risk None identified. Assessment: 17:11 General: Appears in no apparent distress. comfortable, Behavior is calm, cooperative, rb1 Denies fever. Pain: Complains of pain in suprapubic area Pain currently is 4 out of 10 on a pain scale. Quality of pain is described as crampy. Neuro: Level of Consciousness is awake, alert, obeys commands, Oriented to person, place, time, situation. Cardiovascular: Reports chest pain, since x 1 week Capillary refill < 3 seconds is brisk in bilateral fingers. Respiratory: Airway is patent Respiratory effort is even, unlabored, Respiratory pattern is regular, symmetrical. GI: Reports cramping, diarrhea. : Reports vaginal bleeding that is with clots, heavy flow since x 3 days. Derm: Skin is pink, warm \T\ dry. 17:52 Reassessment: MIKKI, customer solutions coordinator went to start the IV and the pt. was not in the room. rb1 18:00 Reassessment: I went to look for the pt. and she could not be found. She is not of the rb1 unit for testing and not in the restrooms. 18:08 Reassessment: Notified provider that the pt. was not in her room and I suspect that she rb1 has eloped at this time. Vital Signs: 17:05 BP 127 / 88; Pulse 86; Resp 16 S; Temp 98.2(TE); Pulse Ox 100% on R/A; Weight 68.04 kg aa5 (R); Height 5 ft. 1 in. (154.94 cm) (R); Pain 4/10; 18:00 rb1 17:05 Body Mass Index 28.34 (68.04 kg, 154.94 cm) aa5 18:00 pt. is not in her room rb1 ED Course: 16:42 Patient arrived in ED. as 17:02 Arm band placed on. aa5 17:04 Triage completed. aa5 17:08 [facility]C [facility] kb 17:08 Rahul Eugene MD is Attending Physician. kb 17:11 Patient has correct armband on for positive identification. Bed in low position. Call rb1 light in reach. Side rails up X 1. Pulse ox on. NIBP on. 17:18 Aditi Zhou, RN is Primary Nurse. rb1 Administered Medications: No medications were administered Outcome: 18:08 Patient left the ED. rb1 18:08 Eloped from patient exam room. rb1 Signatures: Rebecca Sequeira FNP-C FNP-Itzel Osborne Audri, RN RN aa5 Aditi Zhou, RN RN rb1 Corrections: (The following items were deleted from the chart) 17:05 17:02 Presenting complaint: Patient states: heavy bleeding with clots that began 3 days aa5 ago. Pt also c/o abdominal cramping and diarrhea. Pt also reports chest pain. aa5 19:10 18:51 Patient left the ED. aa5 rb1
[2019-09-19 19:04] VITALS: BP 127/88; TEMP 98.2; O2SAT 100
== END 2019-09-19 18:51 | disposition left against medical advice (07) ==
LOC: ER 16:40
DX: N93.9 Abnormal uterine and vaginal bleeding, unspecified (principal); Z53.29 Procedure and treatment not carried out because of patient's decision for other reasons
CPT/HCPCS: 81003; 81025; 99282

== ENCOUNTER 2019-09-24 21:52 | Emergency (ER) | payer SELFPAY ==
--- OUTSIDE RECORDS SUMMARY | 2019-09-24 21:56 | XMS REPORT ---
:1995 [facility] Address [address] [place] [address] [address] [place] [address] Care Team Providers Name Role Phone Unavailable Unavailable Unavailable Problems This patient has no known problems. Allergies, Adverse Reactions, Alerts This patient has no known allergies or adverse reactions. Medications This patient has no known medications.
[2019-09-24 22:37] LABS: Absolute Lymphocytes (CBC) 3.3 K/uL (0.7-4.9); Basophils % 0.5 % (0-1.3); Hematocrit 32.2 % (36.0-45.0); Lymphocytes % 29.3 % (15.3-44.8); MPV 9.2 fL (7.6-11.3); RBC Red Blood Cell Count 4.13 M/uL (3.86-4.86)
[2019-09-24 22:42] LABS: Protime INR 0.99
[2019-09-24 22:57] LABS: ALT/SGPT 15 U/L (12-78); AST/SGOT 26 U/L (15-37); Albumin 3.2 g/dL (3.4-5.0); Alkaline Phosphatase 120 U/L (45-117); BUN Blood Urea Nitrogen 9 mg/dL (7-18); Bicarbonate 28 mmol/L (21-32); Bilirubin Direct 0.1 mg/dL (0-0.2); Bilirubin Total 0.3 mg/dL (0.2-1.0); Glucose Level 66 mg/dL (74-106); Magnesium 2.1 mg/dL (1.8-2.4); NT PRO-BNP 10 pg/mL (<125); Potassium 3.5 mmol/L (3.5-5.1); Sodium Level 141 mmol/L (136-145); Troponin (Emerg Dept Use Only) < 0.02 ng/mL (0.0-0.045)
--- NOTE | 2019-09-24 23:19 | ER ---
Nurse's Notes [facility] Name: Hallie Rasmussen Age: 23 yrs Sex: Female : 1995 Arrival Date: 09/24/2019 Time: 21:56 Bed 18 Private MD: Diagnosis: Chest pain, unspecified Presentation: 09/24 22:06 Presenting complaint: Patient states: chest pain that started a week ago. Pt states wh continuous chest pain feels like pressure that radiates to her back. Transition of care: patient was not received from another setting of care. Onset of symptoms was September 17, 2019. Risk Assessment: Do you want to hurt yourself or someone else? Patient reports no desire to harm self or others. Initial Sepsis Screen: Does the patient meet any 2 criteria? No. Patient's initial sepsis screen is negative. Does the patient have a suspected source of infection? No. Patient's initial sepsis screen is negative. Care prior to arrival: None. 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 - Social history:: Smoking status: Patient uses tobacco products, denies chronic smoking, but will smoke occasionally. - Ebola Screening: : Patient negative for fever greater than or equal to 101.5 degrees Fahrenheit, and additional compatible Ebola Virus Disease symptoms Patient denies exposure to infectious person. Screenin:10 Abuse screen: Denies threats or abuse. Denies injuries from another. Nutritional screening: No deficits noted. Tuberculosis screening: No symptoms or risk factors identified. Fall Risk None identified. Assessment: 22:11 General: Appears in no apparent distress. Behavior is calm, cooperative, appropriate for age. Pain: Complains of pain in chest Pain radiates to back Pain currently is 7 out of 10 on a pain scale. Quality of pain is described as pressure, Pain began a week ago. Neuro: Level of Consciousness is awake, alert, obeys commands, Oriented to person, place, time, situation, Appropriate for age. Cardiovascular: Heart tones S1 S2 Rhythm is regular. Respiratory: Airway is patent Respiratory effort is even, unlabored, Respiratory pattern is regular, symmetrical, Breath sounds are clear bilaterally. GI: Abdomen is flat, non-distended. : No signs and/or symptoms were reported regarding the genitourinary system. EENT: No signs and/or symptoms were reported regarding the EENT system. Derm: Skin is intact, is healthy with good turgor, Skin is pink, warm \T\ dry. normal. Musculoskeletal: Circulation, motion, and sensation intact. 23:30 Reassessment: Patient appears in no apparent distress at this time. No changes from previously documented assessment. Patient and/or family updated on plan of care and expected duration. Pain level reassessed. Patient is alert, oriented x 3, equal unlabored respirations, skin warm/dry/pink. Vital Signs: 22:28 BP 114 / 68; Pulse 88; Resp 18; Temp 98.2; Pulse Ox 100% ; wh 23:30 BP 114 / 73; Pulse 84; Resp 18; Pulse Ox 100% on R/A; ED Course: 21:56 Patient arrived in ED. cf2 22:04 [facility]C [facility]. kb 22:04 Rahul Eugene MD is Attending Physician. kb 22:06 Akhil Carroll is Primary Nurse. wh 22:09 Triage completed. wh 22:13 Arm band placed on right wrist. wh 22:14 Patient has correct armband on for positive identification. shelter monitor on. Pulse wh ox on. NIBP on. 22:14 Patient maintains SpO2 saturation greater than 95% on room air. 22:28 XRAY Chest (1 view) In Process Unspecified. EDMS 22:30 Inserted saline lock: 20 gauge in right antecubital area, using aseptic technique. Blood collected. 23:30 No provider procedures requiring assistance completed. IV discontinued, intact, wh bleeding controlled, No redness/swelling at site. Administered Medications: 23:46 Drug: TORadol - Ketorolac 15 mg Route: IVP; Site: right antecubital; 23:50 Follow up: Response: No adverse reaction Outcome: 23:19 Discharge ordered by . kb 23:40 Discharged to home ambulatory. 23:40 Condition: stable 23:40 Discharge instructions given to patient, Instructed on discharge instructions, follow up and referral plans. medication usage, POC Non Specific Chest Pain Demonstrated understanding of instructions, follow-up care, medications, POC Prescriptions given X 1. 23:47 Patient left the ED. Signatures: Dispatcher [employer] EDRebecca Bradley, ALTAGRACIA BOWEN-Akhil Macedo Celesta cf2
--- NOTE | 2019-09-24 23:19 | EDPHYS ---
Physician Documentation [facility] Name: Hallie Rasmussen Age: 23 yrs Sex: Female : 1995 Arrival Date: 09/24/2019 Time: 21:56 Bed 18 Private MD: ED Physician Rahul Eugene HPI: 09/24 23:25 This 23 yrs old Female presents to ER via Ambulatory with complaints of Chest kb Pain. 23:25 The patient or guardian reports chest pain that is located primarily in the anterior kb chest wall, right. The pain does not radiate. Associated signs and symptoms: The patient has no apparent associated signs or symptoms. The chest pain is described as aching. Duration: The patient or guardian reports multiple episodes. Modifying factors: The symptoms are alleviated by nothing. the symptoms are aggravated by movement. Severity of pain: At its worst the pain was moderate in the emergency department the pain is unchanged. The patient has not experienced similar symptoms in the past. The patient has not recently seen a physician. Pt reports intermittent chest pain for a couple of weeks and it became constant 5 days ago. Reports pain is to right side of chest and gets worse with movement. 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 - Social history:: Smoking status: Patient uses tobacco products, denies chronic smoking, but will smoke occasionally. - Ebola Screening: : Patient negative for fever greater than or equal to 101.5 degrees Fahrenheit, and additional compatible Ebola Virus Disease symptoms Patient denies exposure to infectious person. ROS: 23:25 Constitutional: Negative for fever, chills, and weight loss, ENT: Negative for injury, kb pain, and discharge, Neck: Negative for injury, pain, and swelling, Respiratory: Negative for shortness of breath, cough, wheezing, and pleuritic chest pain, Abdomen/GI: Negative for abdominal pain, nausea, vomiting, diarrhea, and constipation, Back: Negative for injury and pain, MS/Extremity: Negative for injury and deformity, Skin: Negative for injury, rash, and discoloration, Neuro: Negative for headache, weakness, numbness, tingling, and seizure. 23:25 Cardiovascular: Positive for chest pain, with movement, of the anterior aspect of right upper chest. Exam: 23:26 Constitutional: This is a well developed, well nourished patient who is awake, alert, kb and in no acute distress. Head/Face: Normocephalic, atraumatic. Neck: Trachea midline, no thyromegaly or masses palpated, and no cervical lymphadenopathy. Supple, full range of motion without nuchal rigidity, or vertebral point tenderness. No Meningismus. Chest/axilla: Normal chest wall appearance and motion. Nontender with no deformity. No lesions are appreciated. Cardiovascular: Regular rate and rhythm with a normal S1 and S2. No gallops, murmurs, or rubs. Normal PMI, no JVD. No pulse deficits. Respiratory: Lungs have equal breath sounds bilaterally, clear to auscultation and percussion. No rales, rhonchi or wheezes noted. No increased work of breathing, no retractions or nasal flaring. Abdomen/GI: Soft, non-tender, with normal bowel sounds. No distension or tympany. No guarding or rebound. No evidence of tenderness throughout. Skin: Warm, dry with normal turgor. Normal color with no rashes, no lesions, and no evidence of cellulitis. MS/ Extremity: Pulses equal, no cyanosis. Neurovascular intact. Full, normal range of motion. Neuro: Awake and alert, GCS 15, oriented to person, place, time, and situation. Cranial nerves II-XII grossly intact. Motor strength 5/5 in all extremities. Sensory grossly intact. Cerebellar exam normal. Normal gait. Vital Signs: 22:28 BP 114 / 68; Pulse 88; Resp 18; Temp 98.2; Pulse Ox 100% ; wh 23:30 BP 114 / 73; Pulse 84; Resp 18; Pulse Ox 100% on R/A; wh MDM: 22:04 Patient medically screened. kb 23:18 Data reviewed: vital signs, nurses notes. Data interpreted: Pulse oximetry: on room air kb is 100 %. Interpretation: normal. Counseling: I had a detailed discussion with the patient and/or guardian regarding: the historical points, exam findings, and any diagnostic results supporting the discharge/admit diagnosis, lab results, radiology results, the need for outpatient follow up, a family practitioner, to return to the emergency department if symptoms worsen or persist or if there are any questions or concerns that arise at home. 09/24 22:11 Order name: Basic Metabolic Panel; Complete Time: 22:58 kb 09/24 22:11 Order name: CBC with Diff; Complete Time: 22:44 kb 09/24 22:11 Order name: LFT's; Complete Time: 22:58 kb 09/24 22:11 Order name: Magnesium; Complete Time: 22:58 kb 09/24 22:11 Order name: NT PRO-BNP; Complete Time: 22:58 kb 09/24 22:11 Order name: PT-INR; Complete Time: 22:44 kb 09/24 22:11 Order name: Troponin (emerg Dept Use Only); Complete Time: 22:58 kb 09/24 22:11 Order name: XRAY Chest (1 view) kb 09/24 22:11 Order name: EKG; Complete Time: 22:11 kb 09/24 22:11 Order name: Cardiac monitoring; Complete Time: 22:23 kb 09/24 22:11 Order name: EKG - Nurse/Tech; Complete Time: 22:23 kb 09/24 22:11 Order name: IV Saline Lock; Complete Time: 22:28 kb 09/24 22:11 Order name: Labs collected and sent; Complete Time: 22:28 kb 09/24 22:11 Order name: O2 Per Protocol; Complete Time: 22:28 kb 09/24 22:11 Order name: O2 Sat Monitoring; Complete Time: 22:28 kb Administered Medications: 23:46 Drug: TORadol - Ketorolac 15 mg Route: IVP; Site: right antecubital; 23:50 Follow up: Response: No adverse reaction Disposition: 09/25 09:02 Co-signature as Attending Physician, Rahul Eugene MD I agree with the assessment and carolee plan of care. Disposition: 09/24/19 23:19 Discharged to Home. Impression: Chest pain, unspecified. - Condition is Stable. - Discharge Instructions: Nonspecific Chest Pain, [id number]. - Prescriptions for Diclofenac Sodium 75 mg Oral Tablet, Delayed Release (E.C.) - take 1 tablet by ORAL route 2 times per day As needed; 30 tablet. - Medication Reconciliation Form, Thank You Letter, Antibiotic Education, Prescription Opioid Use form. - Follow up: Emergency Department; When: As needed; Reason: Worsening of condition. Follow up: Private Physician; When: 2 - 3 days; Reason: Recheck today's complaints, Continuance of care, Re-evaluation by your physician. Signatures: Dispatcher [employer] EDMS Rebecca Sequeira, ALTAGRACIA BOWEN-Rahul Campo MD MD cha Habalo, Winsy Corrections: (The following items were deleted from the chart) 09/24 23:47 23:19 09/24/2019 23:19 Discharged to Home. Impression: Chest pain, unspecified. Condition is Stable. Forms are Medication Reconciliation Form, Thank You Letter, Antibiotic Education, Prescription Opioid Use. Follow up: Emergency Department; When: As needed; Reason: Worsening of condition. Follow up: Private Physician; When: 2 - 3 days; Reason: Recheck today's complaints, Continuance of care, Re-evaluation by your physician. kb
[2019-09-24] MEDS ORDERED: KETOROLAC 30 MG/ML INJ ONE (23:36)
[2019-09-24 23:56] VITALS: BP 114/68; TEMP 98.2; O2SAT 100
--- NOTE | 2019-09-25 09:35 | RAD REPORT ---
EXAM DESCRIPTION: RAD - Chest Single View - 09/24/2019 10:27 pm CLINICAL HISTORY: CHEST PAIN Chest pain. COMPARISON: No comparisons FINDINGS: Portable technique limits examination quality. The lungs are grossly clear. The heart is normal in size. No displaced fractures. IMPRESSION: No acute intrathoracic process suspected.
--- NOTE | 2019-09-25 14:20 | EKG ---
Test Date: 2019-09-24 Test Time: 22:09:02 Arts Education Teacher: AUTUMN MEASUREMENT RESULTS: Intervals: Rate: 87 VA: 134 QRSD: 84 QT: 360 QTc: 433 [place]: P: 12 VA: 134 QRS: 27 T: 6 INTERPRETIVE STATEMENTS: Normal sinus rhythm Cannot rule out Inferior infarct, age undetermined Abnormal ECG No previous ECG available for comparison Electronically Signed On 09-25-19 14:19:18 CHARGE NURSE by Rayshawn Slater
== END 2019-09-24 23:47 | disposition home or self-care (01) ==
LOC: ER 21:52
DX: R07.9 Chest pain, unspecified (principal); Z72.0 Tobacco use
CPT/HCPCS: 36415; 71045; 80048; 80076; 83735; 83880; 84484; 85025; 85610; 93005; 96374; 99285

== ENCOUNTER 2021-05-09 11:21 | Inpatient (IN) | payer SELFPAY ==
[2021-05-09 11:49] LABS: Urine Blood Negative (Negative); Urine Glucose Negative (Negative); Urine Protein Negative (Negative); Urine Specific Gravity 1.025 (1.005-1.030); Urine pH 5.5 (5.0-7.0)
[2021-05-09 12:46] LABS: Absolute Lymphocytes (CBC) 2.8 K/uL (0.7-4.9); Basophils % 1.1 % (0-1.3); Hematocrit 39.6 % (36.0-45.0); Lymphocytes % 25.3 % (15.3-44.8); MPV 9.3 fL (7.6-11.3); RBC Red Blood Cell Count 4.68 M/uL (3.86-4.86)
[2021-05-09 12:52] LABS: ALT/SGPT 16 U/L (12-78); AST/SGOT 20 U/L (15-37); Albumin 3.9 g/dL (3.4-5.0); Alkaline Phosphatase 107 U/L (45-117); BUN Blood Urea Nitrogen 14 mg/dL (7-18); Bicarbonate 24 mmol/L (21-32); Bilirubin Direct 0.2 mg/dL (0-0.2); Bilirubin Total 0.8 mg/dL (0.2-1.0); Glucose Level 93 mg/dL (74-106); Lipase 89 U/L (73-393); Protein, Total 8.7 g/dL (6.4-8.2); Sodium Level 137 mmol/L (136-145)
--- NOTE | 2021-05-09 12:58 | RAD REPORT ---
EXAM DESCRIPTION: US - Abdomen Exam Limited - 05/09/2021 12:32 pm CLINICAL HISTORY: Abdominal pain. COMPARISON: 2018 FINDINGS: Multiple gallstones. Gallbladder is distended. Gallbladder wall is mildly thickened. A sma ll amount pericholecystic fluid. The common bile duct measures 6.5 millimeters IMPRESSION: Cholelithiasis. Thickened gallbladder wall with small amount pericholecystic fluid proba christina indicating cholecystitis Mild dilatation of the common bile may indicate a nonvisualized stone within the duct
[2021-05-09] MEDS ORDERED: ONDANSETRON 4 MG/2 ML VIAL ONE ×3 (13:32→18:07)
[2021-05-09] MEDS ORDERED: MORPHINE 4 MG/ML SYR ONE (13:32)
[2021-05-09 13:34] LABS: Urine Specific Gravity/Preg 1.025 (1.005-1.030)
--- NOTE | 2021-05-09 13:59 | ER ---
Nurse's Notes [facility] Name: Hallie Rasmussen Age: 25 yrs Sex: Female : 1995 Arrival Date: 05/09/2021 Time: 11:27 Bed 23 Private MD: Diagnosis: Acute cholecystitis Presentation: 05/09 11:36 Chief complaint: Patient states: RUQ abd pain for 3 days with N/V and constipation. No ll1 fever. States she had blood when trying to have BM earlier. Coronavirus screen: Client denies travel out of the [place] in the last 14 days. At this time, the client does not indicate any symptoms associated with coronavirus-19. Ebola Screen: Patient denies travel to an Ebola-affected area in the 21 days before illness onset. Initial Sepsis Screen: Does the patient meet any 2 criteria? No. Patient's initial sepsis screen is negative. Does the patient have a suspected source of infection? Yes: Acute abdominal pain. Risk Assessment: Do you want to hurt yourself or someone else? Patient reports no desire to harm self or others. Onset of symptoms was May 07, 2021. 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 - Social history:: Smoking status: Patient denies any tobacco usage or history of. Screenin:38 Abuse screen: Denies threats or abuse. Denies injuries from another. Nutritional ca1 screening: No deficits noted. Tuberculosis screening: No symptoms or risk factors identified. Fall Risk IV access (20 points). Assessment: 11:38 General: Appears in no apparent distress. comfortable, Behavior is calm, cooperative, ca1 appropriate for age. Pain: Complains of pain in right upper quadrant and right lower quadrant Pain radiates to right mid back and right low back Pain currently is 8 out of 10 on a pain scale. Quality of pain is described as sharp, Pain began 2-3 days ago. Is continuous, Aggravated by repositioning. Neuro: Level of Consciousness is awake, alert, obeys commands, Oriented to person, place, time, situation. Cardiovascular: Heart tones S1 S2 present Capillary refill < 3 seconds Patient's skin is warm and dry. Respiratory: Airway is patent Respiratory effort is even, unlabored, Respiratory pattern is regular, symmetrical, Breath sounds are clear bilaterally. GI: Abdomen is round non-distended, Bowel sounds present X 4 quads. Abd is soft X 4 quads Abdomen is tender to palpation in right upper quadrant and right lower quadrant Reports constipation, nausea. : No signs and/or symptoms were reported regarding the genitourinary system. EENT: No signs and/or symptoms were reported regarding the EENT system. Derm: Skin is intact, is healthy with good turgor, Skin is pink, warm \T\ dry. Musculoskeletal: Circulation, motion, and sensation intact. Capillary refill < 3 seconds. 12:23 Reassessment: US at bedside. ca1 12:24 Reassessment: Patient appears in no apparent distress at this time. Patient and/or ca1 family updated on plan of care and expected duration. Pain level reassessed. Patient is alert, oriented x 3, equal unlabored respirations, skin warm/dry/pink. 13:29 Reassessment: Patient appears in no apparent distress at this time. Patient and/or ca1 family updated on plan of care and expected duration. Pain level reassessed. Patient is alert, oriented x 3, equal unlabored respirations, skin warm/dry/pink. 14:19 Reassessment: Patient appears in no apparent distress at this time. Patient and/or ca1 family updated on plan of care and expected duration. Pain level reassessed. Patient is alert, oriented x 3, equal unlabored respirations, skin warm/dry/pink. Vital Signs: 11:36 Weight 86.18 kg; Height 5 ft. 2 in. (157.48 cm); Pain 8/10; ll1 11:37 BP 135 / 79; Pulse 89; Resp 18 S; Temp 98.6(O); Pulse Ox 98% on R/A; ca1 12:24 BP 117 / 80; Pulse 86; Resp 18 S; Pulse Ox 99% on R/A; ca1 13:29 BP 123 / 85; Pulse 81; Resp 16 S; Pulse Ox 97% on R/A; ca1 14:19 BP 125 / 80; Pulse 79; Resp 15 S; Pulse Ox 95% on R/A; ca1 11:36 Body Mass Index 34.75 (86.18 kg, 157.48 cm) ll1 ED Course: 11:27 Patient arrived in ED. mr 11:32 Ryan Gary PA is PHCP. [facility] 11:32 Sunday Turk MD is Attending Physician. [facility] 11:33 Naomy Schuster, MARVIN is Primary Nurse. ca1 11:35 Arm band placed on Patient placed in an exam room, on a stretcher. ll1 11:37 Triage completed. ll1 11:38 Patient has correct armband on for positive identification. Bed in low position. Call ca1 light in reach. Side rails up X 1. Pulse ox on. NIBP on. Warm blanket given. 11:57 Missed attempt(s): 20 gauge in left antecubital area. Bleeding controlled, band aid ca1 applied, catheter tip intact. 12:21 Initial lab(s) drawn, by me, sent to lab. Inserted saline lock: 22 gauge in left wrist, ca1 using aseptic technique. Blood collected. 12:32 US Abdomen Limited In Process Unspecified. EDMS 13:58 Alphonse Espinoza MD is Hospitalizing Provider. [facility] 14:37 No provider procedures requiring assistance completed. Patient admitted, IV remains in ca1 place. Administered Medications: 13:25 Drug: Zofran (Ondansetron) 4 mg Route: IVP; Site: left antecubital; ca1 14:21 Follow up: Response: No adverse reaction; Nausea is decreased ca1 13:30 Drug: morphine 4 mg {Note: rass 0.} Route: IVP; Site: left wrist; ca1 14:21 Follow up: Response: No adverse reaction; Pain is decreased; RASS: Alert and Calm (0) ca1 14:07 Drug: Flagyl (metroNIDAZOLE) 500 mg Volume: 100 ml; Route: IVPB; Rate: 200 ml/hr; ca1 Infused Over: 30 mins; Site: left wrist; 14:36 Follow up: Response: No adverse reaction; IV Status: Completed infusion; IV Intake: ca1 100ml 14:37 Drug: Cipro (ciprofloxacin) 400 mg Volume: 200 ml; Route: IVPB; Infused Over: 60 mins; ca1 Site: left wrist; 14:37 Follow up: Response: No adverse reaction; IV Status: Infusion continued upon admission ca1 Intake: 14:36 IV: 100ml; Total: 100ml. ca1 Outcome: 13:58 Decision to Hospitalize by Provider. soledad 14:37 Admitted to OR accompanied by nurse, via wheelchair, with chart, Report called to ca1 given to MARVIN Quiroz 14:38 Condition: stable ca1 14:38 Instructed on the need for admit. 14:40 Patient left the ED. eb Signatures: Dispatcher [employer] EDMS Ryan Gary PA PA jmm Rivera, Mary mr HardwickJennifer Cheryl RN RN ca1 Nyla Wilson RN RN ll1
--- NOTE | 2021-05-09 13:59 | EDPHYS ---
Physician Documentation [facility] Name: Hallie Rasmussen Age: 25 yrs Sex: Female : 1995 Arrival Date: 05/09/2021 Time: 11:27 Bed 23 Private MD: ED Physician Sunday Turk HPI: 05/09 12:11 This 25 yrs old Female presents to ER via Ambulatory with complaints of jmm Abdominal Pain. 12:11 The patient presents with abdominal pain. Onset: The symptoms/episode began/occurred jmm acutely, last night. The symptoms radiate to right back. Associated signs and symptoms: Pertinent positives: vomiting. The symptoms are described as achy, sharp. Modifying factors: The symptoms are alleviated by nothing, the symptoms are aggravated by nothing. The patient has experienced a previous episode. This is a 25 year old female with no chronic medical conditions that presents to the ED with complaints of right sided abdominal pain beginning last night. Similar to previous episodes of gallstones. Denies fever, denies diarrhea. . 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 - Social history:: Smoking status: Patient denies any tobacco usage or history of. ROS: 12:11 Constitutional: Negative for fever, chills, and weight loss, Cardiovascular: Negative jmm for chest pain, palpitations, and edema, Respiratory: Negative for shortness of breath, cough, wheezing, and pleuritic chest pain. 12:11 Abdomen/GI: Positive for abdominal pain, nausea and vomiting. 12:11 Back: Positive for radiated pain. 12:11 All other systems are negative. Exam: 12:11 Constitutional: This is a well developed, well nourished patient who is awake, alert, jmm and in no acute distress. Head/Face: atraumatic. Eyes: EOMI, no conjunctival erythema appreciated ENT: Moist Mucus Membranes Neck: Trachea midline, Supple Chest/axilla: Normal chest wall appearance and motion. Cardiovascular: Regular rate and rhythm. No edema appreciated Respiratory: Normal respirations, no respiratory distress appreciated 12:11 Back: Normal ROM Skin: General appearance color normal MS/ Extremity: Moves all extremities, no obvious deformities appreciated, no edema noted to the lower extremities Neuro: Awake and alert, normal gait Psych: Behavior is normal, Mood is normal, Patient is cooperative and pleasant 12:11 Abdomen/GI: Inspection: abdomen appears normal, Bowel sounds: normal, Palpation: moderate abdominal tenderness, in the right upper quadrant. Vital Signs: 11:36 Weight 86.18 kg; Height 5 ft. 2 in. (157.48 cm); Pain 8/10; ll1 11:37 BP 135 / 79; Pulse 89; Resp 18 S; Temp 98.6(O); Pulse Ox 98% on R/A; ca1 12:24 BP 117 / 80; Pulse 86; Resp 18 S; Pulse Ox 99% on R/A; ca1 13:29 BP 123 / 85; Pulse 81; Resp 16 S; Pulse Ox 97% on R/A; ca1 14:19 BP 125 / 80; Pulse 79; Resp 15 S; Pulse Ox 95% on R/A; ca1 11:36 Body Mass Index 34.75 (86.18 kg, 157.48 cm) ll1 MDM: 12:11 Patient medically screened. [facility] 13:56 Data reviewed: vital signs, nurses notes. Counseling: I had a detailed discussion with soledad the patient and/or guardian regarding: the historical points, exam findings, and any diagnostic results supporting the discharge/admit diagnosis, lab results, the need for further work-up and treatment in the hospital. ED course: I discussed the patient with Dr. Espinoza whom accepted the patient for admission. . 05/09 11:49 Order name: Urine Dipstick-Ancillary; Complete Time: 12:13 [facility] 05/09 12:11 Order name: Basic Metabolic Panel [facility] 05/09 12:11 Order name: CBC with Diff; Complete Time: 12:54 [facility] 05/09 12:11 Order name: Hepatic Function; Complete Time: 12:54 [facility] 05/09 12:11 Order name: Lipase; Complete Time: 12:54 [facility] 05/09 12:12 Order name: Basic Metabolic Panel; Complete Time: 12:54 [facility] 05/09 13:06 Order name: Urine --Ancillary (enter results); Complete Time: 13:35 eb 05/09 14:05 Order name: Basic Metabolic Panel [facility] 05/09 14:05 Order name: Basic Metabolic Panel [facility] 05/09 14:05 Order name: CBC with Automated Diff [facility] 05/09 14:05 Order name: CBC with Automated Diff [facility] 05/09 14:05 Order name: Lipase [facility] 05/09 14:05 Order name: Lipase [facility] 05/09 14:05 Order name: Liver (Hepatic) Function [facility] 05/09 12:11 Order name: IV Saline Lock; Complete Time: 12:23 [facility] 05/09 12:11 Order name: Labs collected and sent; Complete Time: 12:23 [facility] 05/09 12:11 Order name: US Abdomen Limited; Complete Time: 13:13 [facility] 05/09 12:13 Order name: Urine Test (obtain specimen); Complete Time: 12:13 [facility] 05/09 14:05 Order name: NPO [facility] 05/09 14:05 Order name: Liver (Hepatic) Function [facility] 05/09 14:05 Order name: COVID-19 : Document "Date of Symptom Onset" if Symptomatic. [facility] Administered Medications: 13:25 Drug: Zofran (Ondansetron) 4 mg Route: IVP; Site: left antecubital; ca1 14:21 Follow up: Response: No adverse reaction; Nausea is decreased ca1 13:30 Drug: morphine 4 mg {Note: rass 0.} Route: IVP; Site: left wrist; ca1 14:21 Follow up: Response: No adverse reaction; Pain is decreased; RASS: Alert and Calm (0) ca1 14:07 Drug: Flagyl (metroNIDAZOLE) 500 mg Volume: 100 ml; Route: IVPB; Rate: 200 ml/hr; ca1 Infused Over: 30 mins; Site: left wrist; 14:36 Follow up: Response: No adverse reaction; IV Status: Completed infusion; IV Intake: ca1 100ml 14:37 Drug: Cipro (ciprofloxacin) 400 mg Volume: 200 ml; Route: IVPB; Infused Over: 60 mins; ca1 Site: left wrist; 14:37 Follow up: Response: No adverse reaction; IV Status: Infusion continued upon admission ca1 Disposition: 17:12 Co-signature as Attending Physician, Sunday Turk MD I agree with the assessment and kdr plan of care. Disposition Summary: 05/09/21 13:58 Hospitalization Ordered Hospitalization Status: Inpatient Admission [facility] Provider: Alphonse Espinoza Location: Telemetry/MedSurg (observation) jmm Condition: Stable jmm Problem: an acute exacerbation jmm Symptoms: have improved jmm Bed/Room Type: Standard [facility] Room Assignment: m Diagnosis - Acute cholecystitis jmm Forms: - Medication Reconciliation Form jmm - SBAR form jmm Signatures: Dispatcher [employer] EDSunday Self MD MD kdr Mickail, Joel, PA PA m Naomy Schuster RN RN ca1 Nyla Wilson RN RN ll1
[2021-05-09] MEDS ORDERED: MORPHINE 4 MG/ML SYR IV PRN (14:02)
[2021-05-09] MEDS ORDERED: ACETAMINOPHEN 500 MG TAB PO PRN (14:02)
[2021-05-09] MEDS ORDERED: METRONIDAZOLE 500mg IVPB 500 MG/100 ML BAG IV ONE (14:23)
[2021-05-09] MEDS ORDERED: CIPROFLOXACIN 400mg IV 400 MG/200 ML BAG IV ONE (14:23)
[2021-05-09] MEDS ORDERED: Ringers Lactate 1,000 ML IV ONE (15:06)
--- OUTSIDE RECORDS SUMMARY | 2021-05-09 15:26 | XMS REPORT | Continuity of Care Document ---
:1995 Author Organization [facility] t Address [address] [place] [address] Care Team Providers Name Role Phone Raymond Dick DO Attending Clinician Magdy GIANGP C Attending Clinician Francisco BOWEN, R Attending Clinician Rika Edwards MD Attending Clinician Denton RN Attending Clinician Unavailable Rika Edwards MD Admitting Clinician Problems This patient has no known problems. Allergies, Adverse Reactions, Alerts This patient has no known allergies or adverse reactions. Medications This patient has no known medications. Procedures This patient has no known procedures. Encounters Start End Encounter Admission Attending Care Care Encounter Source Date/Time Date/Time Type Type Clinicians Facility Department ID 2021-01-23 2021-01-23 Patient SELENE Dick [id number] 00:00:00 00:00:00 Outreach [place]aine PRIMARY [id number] Raymond [facility] [id number] [facility] [id number] 2020-04-14 2020-04-14 Telephone SELENE Curran [id number] 00:00:00 00:00:00 Elizabeth Messina AGRONOMY PROFESSOR [id number] [facility] [id number] MATERNAL [id number] & [address] 2019-07-13 2019-07-13 Telephone Francisco [facility] [id number] 00:00:00 00:00:00 Roshunda R AGRONOMY PROFESSOR [id number] [facility] [id number] MATERNAL [id number] & CHILD [address] [facility] 2019-07-08 2019-07-08 Telephone Francisco [facility] [id number] 00:00:00 00:00:00 Roshunda R AGRONOMY PROFESSOR [id number] [facility] [id number] MATERNAL [id number] & CHILD [address] [facility] 2019-06-19 2019-06-21 Hospital AJ Edwards [id number] 04:43:00 16:00:00 Encounter Charles MONTOYA [id number] [place] [id number] 2019-06-19 2019-06-19 Nurse AJ Chawla [id number] 00:00:00 00:00:00 Triage Maria Elena MONTOYA [id number]686 [id number] 2019-06-09 2019-06-09 Routine [facility] [id number] 13:00:40 13:43:48 Elizabeth C AGRONOMY PROFESSOR [id number] Visit [facility]AL [id number] MATERNAL [id number] & CHILD [address] [facility] 2019-06-03 2019-06-03 [facility]phone [facility] [id number] 00:00:00 00:00:00 Elizabeth C AGRONOMY PROFESSOR [id number] [facility] [id number] MATERNAL [id number] & CHILD [address] [facility] Results This patient has no known results.
[2021-05-09] MEDS ORDERED: SUCCINYLCHOLINE 20 MG/ML (10 ML) IV ONE (15:31)
[2021-05-09] MEDS ORDERED: propofoL 200 MG/20 ML VIAL IV ONE (15:32)
[2021-05-09] MEDS ORDERED: MIDAZOLAM HCL 2 MG/2 ML INJ ONE (15:33)
[2021-05-09] MEDS ORDERED: FENTANYL CITR 100 MCG/2 ML ONE ×3 (15:33→18:00)
[2021-05-09] MEDS ORDERED: ROCURONIUM 50 MG/5 ML VIAL IV ONE (15:33)
[2021-05-09] MEDS ORDERED: METRONIDAZOLE 500mg IVPB 500 MG/100 ML BAG IV SCH (17:00)
--- NOTE | 2021-05-09 17:14 | P.HP ---
Date of Service: 05/09/21 PC: This 25-year-old female presents emergency room with severe right upper quadrant abdominal pain for diagnosis and treatment. HPC: Patient been having severe pain, radiating into her back, for the last 3 days. She could no longer standing came to the emergency room. This is not her 1st episode. She has known that she has had gallstones since the of her 3rd child. She now has 5. PMH: 5 para 5 PSHx: Previous C-sections SOC: Denies any allergies, does not take any medications on a regular basis SYS REVIEW: No cough, wheeze, shortness of breath. No chest pain or palpitations. No urinary complaints. Has had this pain issue describes off and on for the last few years. O/E awake alert uncomfortable HEENT: Nonicteric Chest: Chest movement equal bilateral ABD: Tender in the right upper quadrant LOCO: Into DATA: Has documented gallstones with evidence of acute cholecystitis IMPRESSION: Acute cholecystitis with cholelithiasis PLAN: I will take to the operating room for laparoscopic possible open cholecystectomy with cholangiogram. The risks of this procedure were discussed. The possibility of bleeding, infection, injury to bile ducts blood vessels intestines has been described. The possible need for an open and/or further surgeries and procedures was discussed. She understands and wants us to proceed.
--- NOTE | 2021-05-09 17:19 | P.OP ---
Preoperative diagnosis: Acute cholecystitis with cholelithiasis Postoperative diagnosis: The same Primary procedure: Laparoscopic cholecystectomy Secondary procedure: Cholangiogram Anesthesia: General Estimated blood loss: Less than 20 cc Specimen: 1 gallbladder and contents Operative Technique: The patient brought the operating room placed supine on the table. After the induction of adequate general endotracheal anesthesia, there the abdomen is prepped with a DuraPrep solution, she is draped in usual aseptic manner. A subumbilical incision was made. This brought down through the skin and subcutaneous tissue. The Visiport was now used to enter the peritoneal cavity and created pneumoperitoneum to approximately 12 mm of mercury. Under direct vision a 5 mm trocar was placed in the upper midline, and 2 other 5 mm trocars on the right lateral side of the abdomen. With the patient placed in reverse Trendelenburg and rolled to the left were able to visualize the right upper q uadrant. We could see the acute inflammatory process just underneath the liver. The omentum was markedly adherent and inflamed attached to the gallbladder itself. Gentle dissection using electro cautery and countertraction lattice to take the omentum off of the thickened inflamed serosa of the gallbladder. A grasper was now attempted to be placed on the gallbladder. What we were unable to do so and we had to aspirate the gallbladder is contents. It we noticed that she had white bile coming from the gallbladder. The gallbladder now having been partially deflated us allowed us to place a grasper on the fundus of the gallbladder. Elevating the liver we could now see the area were Natalie's pouch should be. This once again was involved and a large amount of chronically and acutely inflamed omentum. This was dissected off the this thickened part of the gallbladder. A grasper was now finally be able to place on Natalie's pouch. We could obviously feel large stone impacted in this area. This having mean gentle levels gentle dissection allowed us to expose both the cystic duct and the cystic artery. Having obtained the critical view, a clip was placed between the gallbladder and the cystic duct. An opening was made into the cystic duct through which we obtained a normal intraoperative cholangiogram the catheter was now withdrawn. Clips were placed so on the distal portion of the cystic duct. The cystic was now transected. Cystic artery was identified and clipped and divided in the usual manner. The gallbladder was now dissected free from the liver bed. It should be noted that the gallbladder was partially imbedded into the actual liver itself. We were finally able to detaching placed into an Endo-Catch. This was then brought out through the umbilicus. Due to the size thickness and the size of the stones it was necessary to open the fascia at the emboli kiss. This was done in inferior direction. The gallbladder was now removed from the peritoneal cavity and sent for histopathology. Attention was turned back towards the umbilical trocar site. 3 sutures were placed using the Endo Close to approximate the facile defect with an absorbable suture. We were now able to Re Laxmi our pneumoperitoneum. Inspection of the liver bed showed adequate hemostasis. The area was now irrigated with a copious amount of saline solution until the effluent was clear. The patient was put in a flat on the OR table at this point. 0.25% Marcaine was used to a beer block the anterior abdominal wall. At this point the pneumoperitoneum was again collapse, the trocars removed, sutures tied and tyrone applied to the skin. At the end of the procedure she was in stable condition when sent to the recovery room. Needle sponge instrument count were reported as correct. No drains were placed. Complications: None Transferred to: Recovery Room Condition: Good
[2021-05-09] MEDS ORDERED: dexAMETHasone 10 MG/ML VIAL ONE (17:20)
[2021-05-09] MEDS ORDERED: NEOSTIGMINE 1 MG/ML -5 ML ONE (17:23)
[2021-05-09] MEDS ORDERED: GLYCOPYRROLATE 0.2 MG/ML SYR ONE ×2 (17:23)
--- NOTE | 2021-05-09 18:05 | RAD REPORT ---
EXAM DESCRIPTION: RADCholangiogram Oper-Xray Or05/09/2021 5:59 pm CLINICAL HISTORY: Abdominal pain FINDINGS: The examination was performed by Dr. Espinoza. The cystic duct was cannulated and contrast administered. Contrast flowed into the duodenum. The biliary tree is normal caliber. A round filling defect is pres ent within the common bile duct which could represent a stone or air bubble. Seven fluoroscopic spot images obtained. Fluoroscopy time 0.3 minutes
[2021-05-09] MEDS: D5 0.45 NS 1,000 ML IV SCH ×2 (18:30→23:00)
[2021-05-09] MEDS: MORPHINE 4 MG/ML SYR IV PRN ×2 (18:30→21:23)
[2021-05-09] MEDS: ONDANSETRON 4 MG/2 ML VIAL IV PRN ×2 (18:30→22:47)
[2021-05-09 18:33] VITALS: BMI 35.1
[2021-05-09] MEDS: CIPROFLOXACIN 400mg IV 400 MG/200 ML BAG IV SCH (21:17)
[2021-05-09] MEDS: HYDROCODONE/APAP 7.5/325 MG TAB PO PRN (23:18)
[2021-05-10] MEDS: ONDANSETRON 4 MG/2 ML VIAL IV PRN ×2 (03:23→09:42)
[2021-05-10] MEDS: MORPHINE 4 MG/ML SYR IV PRN (03:23)
[2021-05-10] MEDS: CIPROFLOXACIN 400mg IV 400 MG/200 ML BAG IV SCH (09:36)
[2021-05-10] MEDS: HYDROCODONE/APAP 7.5/325 MG TAB PO PRN (09:42)
[2021-05-10 10:07] VITALS: O2SAT 94
[2021-05-10 12:27] VITALS: BP 112/61; TEMP 97.4
== END 2021-05-10 12:51 | disposition home or self-care (01) | DRG 419 ==
LOC: ER 11:21 → ERHOLD 14:23 → 2ND 15:27 → OBSVTOIN 05-10 07:52
PROVIDERS: ADMIT Surgery; ATTEND Surgery
PROC: BF00YZZ Plain Radiography of Bile Ducts using Other Contrast (ICD-10-PCS; 2021-05-09)
PROC: 0FT44ZZ Resection of Gallbladder, Percutaneous Endoscopic Approach (ICD-10-PCS; principal; 2021-05-09 15:15)
DX: K80.00 Calculus of gallbladder with acute cholecystitis without obstruction (principal); Z20.822 Contact with and (suspected) exposure to COVID-19
CPT/HCPCS: 36415; 74300; 76705; 80048; 80076; 81003; 81025; 83690; 85025; 88304; 94010; 99285; G0378; J0330; J0744; J1100; J2250; J2405; J2704; J2710; J3010; J7120; J7799; U0003

== ENCOUNTER 2022-04-01 18:06 | Emergency (ER) | payer SELFPAY ==
--- OUTSIDE RECORDS SUMMARY | 2022-04-01 18:09 | XMS REPORT | Continuity of Care Document ---
:1995 Author Organization [facility] t Address [address] [place] [address] Care Team Providers Name Role Phone Raymond Dick DO Attending Clinician Magdy WHCNP C Attending Clinician Francisco BOWEN, R Attending Clinician Rika Edwards MD Attending Clinician Denton WONG Attending Clinician Unavailable Rika Edwards MD Admitting [...] ID 2021-01-23 2021-01-23 Patient SELENE Dick [id number] 00:00:00 00:00:00 Outreach Tremaine PRIMARY [id number] Raymond [facility] [id number] [facility] [id number] 2020-04-14 2020-04-14 Telephone SELENE Curran [id number] 00:00:00 00:00:00 Elizabeth Messina FORMAL WEAR RENTAL CLERK 350.1.13.10 [facility] 4.2.7.2.686 MATERNAL [id number] & [address] 2019-07-13 2019-07-13 Telephone Francisco [facility] [id number] 00:00:00 00:00:00 Roshunda R FORMAL WEAR RENTAL CLERK 350.1.13.10 [facility] [id number] MATERNAL [id number] & CHILD [address] [facility] 2019-07-08 2019-07-08 [facility] [id number] 00:00:00 00:00:00 Roshunda R FORMAL WEAR RENTAL CLERK 350.1.13.10 [facility] [id number] MATERNAL [id number] & CHILD [address] [facility] 2019-06-19 2019-06-21 Hospital AJ Edwards [id number] 04:43:00 16:00:00 Encounter Charles MONTOYA 350.1.13.10 [place] [id number] 2019-06-19 2019-06-19 Nurse AJ Chawla [id number] 00:00:00 00:00:00 Triage Maria Elena MONTOYA [address].13.[address]686 [id number] 2019-06-09 2019-06-09 Routine [facility] [id number] 13:00:40 13:43:48 Elizabeth C FORMAL WEAR RENTAL CLERK 350.1.13.10 Visit REG[facility]AL [id number] MATERNAL [id number] & CHILD [address] [facility] 2019-06-03 2019-06-03 Telephone [facility] [id number] 00:00:00 00:00:00 Elizabeth C FORMAL WEAR RENTAL CLERK 350.1.13.10 [facility] [id number] MATERNAL [id number] & CHILD 107 [facility] Results This patient has no known results.
[2022-04-01 18:53] LABS: Absolute Lymphocytes (CBC) 1.9 K/uL (0.7-4.9); Hematocrit 42.8 % (36.0-45.0); Lymphocytes % 15.1 % (15.3-44.8); MPV 8.8 fL (7.6-11.3); RBC Red Blood Cell Count 4.88 M/uL (3.86-4.86)
[2022-04-01 19:13] LABS: Potassium 3.4 mmol/L (3.5-5.1); Troponin High Sensitivity 33.2 pg/mL (<58.9)
[2022-04-01 19:51] LABS: Blood Morphology Comment NOT SEEN (NOT SEEN); Platelet Estimate ADEQ
--- NOTE | 2022-04-01 19:58 | RAD REPORT ---
EXAM DESCRIPTION: CT - Chest For Pe Angio - 04/01/2022 7:42 pm CLINICAL HISTORY: chest pain COMPARISON: No comparisonsNo comparisons FINDINGS: Chest Wall: Partially calcified left thyroid nodule measuring 10 millimeters. Lungs: Scattered bilateral areas of ground-glass airspace disease and nodularity. There are small con solidative type opacities in the right middle lobe and right lung apex. Changes on the left are confi woo to the lingula and the nodularity is very mild. Pleura: Trace right pleural fluid. Mediastinum/stacia: Hilar adenopathy, right greater than left. Pulmonary arteries/Aorta: No filling defect identified. No aortic aneurysm. Heart: No significant pericardial effusion. Normal heart size. Upper abdomen: No acute abnormality. Bones: No acute abnormality. All CT scans are performed using dose optimization technique as appropriate and may include automated exposure control or mA/KV adjustment according to patient size. IMPRESSION: Negative for pulmonary embolism. Mild nodular and ground-glass airspace disease bilatera lly concerning for a infectious or inflammatory process. Covid-19 is within the differential though t he imaging features are typically more symmetric. Small left thyroid nodule with associated calcifications. Given the patient's age, recommend follow-u p nonemergent thyroid ultrasound.
--- NOTE | 2022-04-01 20:01 | RAD REPORT ---
EXAM DESCRIPTION: RAD - Chest Single View - 04/01/2022 7:55 pm CLINICAL HISTORY: CHEST PAIN COMPARISON: Chest Single View dated 09/24/2019 FINDINGS: Lines: None. Lungs: Nodularity bilaterally including the more masslike right upper lobe opacity that was seen on C T. Pleural: No significant pleural effusions or pneumothorax. Cardiac: The heart size is within normal limits. Bones: No acute fractures. Other: IMPRESSION: Bilateral airspace disease concerning for multifocal pneumonia. More masslike right uppe r lobe opacity. Suggest 6 week to three-month follow-up chest radiograph to ensure resolution.
[2022-04-01 20:25] LABS: Urine Blood 2+ (Negative); Urine Glucose Negative (Negative); Urine Protein Negative (Negative); Urine pH 7.5 (5.0-7.0)
[2022-04-01] MEDS ORDERED: AZITHROMYCIN 500 MG INJ IVPB ONE (21:09)
[2022-04-01] MEDS ORDERED: CEFTRIAXONE 1000 MG/VIAL ONE (21:09)
[2022-04-01] MEDS ORDERED: ONDANSETRON 4 MG/2 ML VIAL ONE (21:09)
[2022-04-01] MEDS ORDERED: MORPHINE 2 MG/ML SYR ONE (21:09)
[2022-04-01] MEDS ORDERED: NA CHLORIDE 0.9% 250 ML ONE (21:09)
[2022-04-01] MEDS ORDERED: NA CHLORIDE 0.9% 50 ML ONE (21:10)
[2022-04-01] MEDS ORDERED: NA CHLORIDE 0.9% 1,000 ML ONE (21:10)
[2022-04-01] MEDS ORDERED: ALBUTEROL INHALER 60 PUFF/8 GM IH ONE (21:10)
--- NOTE | 2022-04-01 23:31 | ER ---
Nurse's Notes [facility] Name: Hallie Rasmussen Age: 26 yrs Sex: Female : 1995 Arrival Date: 04/01/2022 Time: 18:10 Bed 23 Private MD: Diagnosis: Other pneumonia, unspecified organism Presentation: 04/01 18:25 Chief complaint: Patient states: I have been having chest pains on and off for the past jb4 year. Starting 2 days ago it has been constant and progressively getting worse. The pain is in the middle of my chest, it is worse when breathing in or changing positions. Coronavirus screen: At this time, the client does not indicate any symptoms associated with coronavirus-19. Ebola Screen: No symptoms or risks identified at this time. Initial Sepsis Screen: Does the patient meet any 2 criteria? No. Patient's initial sepsis screen is negative. Does the patient have a suspected source of infection? No. Patient's initial sepsis screen is negative. Risk Assessment: Do you want to hurt yourself or someone else? Patient reports no desire to harm self or others. Onset of symptoms was March 30, 2022. Transition of care: patient was not received from another setting of care. 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 - Social history:: Smoking status: Patient denies any tobacco usage or history of. Patient/guardian denies using alcohol, street drugs. Screenin:56 Abuse screen: Denies threats or abuse. Nutritional screening: No deficits noted. ll3 Tuberculosis screening: No symptoms or risk factors identified. Fall Risk No fall in past 12 months (0 pts). No secondary diagnosis (0 pts). IV access (20 points). Ambulatory Aid- None/Bed Rest/Nurse Assist (0 pts). Gait- Normal/Bed Rest/Wheelchair (0 pts) Mental Status- Oriented to own ability (0 pts). Total Bishop Fall Scale indicates No Risk (0-24 pts). Assessment: 19:40 General: Appears uncomfortable, Behavior is calm, cooperative. Pain: Complains of pain ll3 in mid-sternal area Pain does not radiate. Pain currently is 8 out of 10 on a pain scale. Pain began 2-3 days ago. Is continuous. Neuro: Level of Consciousness is awake, alert, obeys commands, Oriented to person, place, time, situation, Speech is normal. Cardiovascular: Reports chest pain, shortness of breath, Patient's skin is warm and dry. Chest pain. Respiratory: Reports shortness of breath Respiratory effort is even, unlabored, Respiratory pattern is. Respiratory: Reports pain with respiration since 2 days. Derm: Skin is pink, warm \T\ dry. Musculoskeletal: Reports pain in back. 21:56 Reassessment: No changes from previously documented assessment. Patient and/or family ll3 updated on plan of care and expected duration. Pain level reassessed. Patient is alert, oriented x 3, equal unlabored respirations, skin warm/dry/pink. 22:59 Reassessment: No changes from previously documented assessment. Patient and/or family ll3 updated on plan of care and expected duration. Pain level reassessed. Patient is alert, oriented x 3, equal unlabored respirations, skin warm/dry/pink. Patient states feeling better. 04/02 00:25 Reassessment: No changes from previously documented assessment. Patient and/or family ll3 updated on plan of care and expected duration. Pain level reassessed. Patient is alert, oriented x 3, equal unlabored respirations, skin warm/dry/pink. Patient states symptoms have improved. Vital Signs: 04/01 18:25 BP 126 / 87; Pulse 103; Resp 18; Temp 97.8(TE); Pulse Ox 98% on R/A; Weight 86.18 kg jb4 (R); Height 5 ft. 2 in. (157.48 cm) (R); Pain 8/10; 21:00 BP 125 / 64; Pulse 86; Resp 17; Pulse Ox 100% on R/A; ll3 22:30 BP 106 / 63; Pulse 86; Resp 18; Pulse Ox 100% on R/A; ll3 04/02 00:25 BP 118 / 64; Pulse 87; Resp 18; Pulse Ox 100% on R/A; ll3 04/01 18:25 Body Mass Index 34.75 (86.18 kg, 157.48 cm) jb4 ED Course: 04/01 18:10 Patient arrived in ED. mr 18:28 Triage completed. jb4 18:28 Arm band placed on right wrist. jb4 18:30 Gage Hallman DO is Attending Physician. ms3 19:13 Todd Guevara MD is Attending Physician. mh7 19:44 CT Chest For PE Angio In Process Unspecified. EDMS 19:57 XRAY Chest (1 view) In Process Unspecified. EDMS 21:20 No provider procedures requiring assistance completed. First set of blood cultures ll3 drawn by me, Second set of blood cultures drawn by me, Urine collected: EKG done, COVID swab sent to lab. Inserted saline lock: 20 gauge in left antecubital area, using aseptic technique. Blood collected. Patient maintains SpO2 saturation greater than 95% on room air. 21:49 Clarisa Delgado, MARVIN is Primary Nurse. ll3 21:56 Patient has correct armband on for positive identification. Bed in low position. Call ll3 light in reach. Side rails up X 1. Client placed on continuous cardiac and pulse oximetry monitoring. NIBP monitoring applied. 04/02 00:25 IV discontinued, intact, bleeding controlled, No redness/swelling at site. Pressure ll3 dressing applied. Administered Medications: 04/01 21:35 Drug: NS 0.9% 1000 ml Route: IV; Rate: 1000 ml; Site: left antecubital; ll3 04/02 00:28 Follow up: Response: No adverse reaction; IV Status: Completed infusion; IV Intake: ll3 1000ml 04/01 21:35 Drug: Zofran (Ondansetron) 4 mg Route: IVP; Site: left antecubital; ll3 22:32 Follow up: Response: No adverse reaction ll3 21:40 Drug: Rocephin (cefTRIAXone) 1 grams Route: IV; Rate: per protocol; Site: left ll3 antecubital; 22:31 Follow up: Response: No adverse reaction; IV Status: Completed infusion; IV Intake: ll3 100ml 21:49 Drug: Albuterol HFA Inhaler 2 puffs Route: Inhalation; ll3 22:32 Follow up: Response: No adverse reaction 3 21:50 Drug: morphine 2 mg Route: IVP; Infused Over: 4 mins; Site: left antecubital; ll3 22:32 Follow up: Response: No adverse reaction ll3 22:55 Drug: AZITHromycin 500 mg Route: IVPB; Infused Over: 1 hrs; Site: left antecubital; ll3 04/02 00:27 Follow up: Response: No adverse reaction; IV Status: Completed infusion; IV Intake: ll3 250ml Medication: 04/01 19:40 VIS not applicable for this client. ll3 Intake: 22: IV: 100ml; Total: 100ml. ll3 04/02 00:27 IV: 250ml; Total: 350ml. ll3 00:28 IV: 1000ml; Total: 1350ml. ll3 Outcome: 04/01 23:31 Discharge ordered by . [facility] 04/02 00:27 Discharged to home ambulatory, with family. ll3 Condition: stable Discharge instructions given to patient, family, Instructed on discharge instructions, follow up and referral plans. medication usage, Demonstrated understanding of instructions, follow-up care, medications, Prescriptions given X 3. 00:27 Patient left the ED. ll3 Signatures: Dispatcher [employer] [facility] FeliceVee AbdielAlphonse, RN RN jb4 Gage Hallman DO DO ms3 Todd Guevara MD MD 7 Clarisa Delgado RN RN ll3
--- NOTE | 2022-04-01 23:31 | EDPHYS ---
Physician Documentation [facility] Name: Hallie Rasmussen Age: 26 yrs Sex: Female : 1995 Arrival Date: 04/01/2022 Time: 18:10 Bed 23 Private MD: ED Physician Todd Guevara HPI: 04/01 18:34 This 26 yrs old Female presents to ER via Ambulatory with complaints of Chest ms3 Pain. 18:34 The patient or guardian reports chest pain that is located primarily in the substernal ms3 area. The pain does not radiate. Associated signs and symptoms: Pertinent positives: shortness of breath, Pertinent negatives: abdominal pain. The chest pain is described as sharp. Duration: The patient or guardian reports multiple episodes, Intermittent x 1 year, constant for 2 days. Modifying factors: The symptoms are alleviated by nothing. the symptoms are aggravated by activity. Severity of pain: At its worst the pain was severe in the emergency department the pain is unchanged is a / 10. 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 - Social history:: Smoking status: Patient denies any tobacco usage or history of. Patient/guardian denies using alcohol, street drugs. ROS: 18:34 Constitutional: Negative for fever, and chills. Neck: Negative for injury, pain, and ms3 swelling, Abdomen/GI: Negative for abdominal pain, nausea, vomiting, diarrhea, and constipation, Skin: Negative for injury, rash, and discoloration. 18:34 Cardiovascular: Positive for chest pain. 18:34 Respiratory: Positive for shortness of breath. 18:34 All other systems are negative. Exam: 18:33 ECG was reviewed by the Attending Physician. ms3 18:34 Constitutional: This is a well developed, well nourished patient who is awake, alert, ms3 and in no acute distress. Head/Face: Normocephalic, atraumatic. Neck: Trachea midline, no cervical lymphadenopathy. Supple, full range of motion without nuchal rigidity, or vertebral point tenderness. No Meningismus. Respiratory: Lungs have equal breath sounds bilaterally, clear to auscultation and percussion. No rales, rhonchi or wheezes noted. No increased work of breathing, no retractions or nasal flaring. Abdomen/GI: Soft, non-tender, with normal bowel sounds. No distension or tympany. No guarding or rebound. No evidence of tenderness throughout. Back: No spinal tenderness. No costovertebral tenderness. Full range of motion. Psych: Awake, alert, with orientation to person, place and time. Behavior, mood, and affect are within normal limits. 18:34 Cardiovascular: Regular rate and rhythm with a normal S1 and S2. No gallops, murmurs, or rubs. Normal PMI, no JVD. No pulse deficits. 18:34 Chest/axilla: Inspection: normal, Palpation: tenderness, that is moderate, of the mid-sternal area. Vital Signs: 18:25 BP 126 / 87; Pulse 103; Resp 18; Temp 97.8(TE); Pulse Ox 98% on R/A; Weight 86.18 kg jb4 (R); Height 5 ft. 2 in. (157.48 cm) (R); Pain 8/10; 21:00 BP 125 / 64; Pulse 86; Resp 17; Pulse Ox 100% on R/A; ll3 22:30 BP 106 / 63; Pulse 86; Resp 18; Pulse Ox 100% on R/A; ll3 04/02 00:25 BP 118 / 64; Pulse 87; Resp 18; Pulse Ox 100% on R/A; ll3 04/01 18:25 Body Mass Index 34.75 (86.18 kg, 157.48 cm) [facility] MDM: 04/01 18:33 Differential diagnosis: abnormal EKG, acute myocardial infarction, acute pericarditis, ms3 pulmonary embolus. 19:07 Transition of care: After a detail discussion of the patient's case, care is ms3 transferred to Todd Guevara MD. 19:11 Patient medically screened. ms3 23:25 HEART Score: History: Slightly Suspicious (0), ECG: Non specific repolarization mh7 disturbance / LBTB / PM (1), Age: < or = 45 years (0), Risk Factors: No Risk Factors Known (0), Troponin: < or = 1 x Normal Limit (0), Total Score = 1. 23:29 Data reviewed: vital signs, nurses notes, lab test result(s), cardiac enzymes, CBC, [facility] electrolytes, urinalysis, UPT: negative EKG, radiologic studies, CT scan, plain films. Data interpreted: Pulse oximetry: on room air is 100 %. Interpretation: normal. Counseling: I had a detailed discussion with the patient and/or guardian regarding: the historical points, exam findings, and any diagnostic results supporting the discharge/admit diagnosis, lab results, radiology results, the need for outpatient follow up, a learning services coordinator, to return to the emergency department if symptoms worsen or persist or if there are any questions or concerns that arise at home. Response to treatment: the patient's symptoms have resolved after treatment, the patient's blood pressure is in an acceptable range, mental status has returned to baseline, the patient no longer shows bradycardia, the patient is not short of breath, the patient is not tachycardic, the patient's pain is gone, the patient's temperature has normalized. 04/01 18:30 Order name: Basic Metabolic Panel; Complete Time: 19:14 ms3 04/01 18:30 Order name: CBC with Diff; Complete Time: 20:03 ca3 04/01 18:30 Order name: D-Dimer; Complete Time: 19:12 ca3 04/01 18:30 Order name: Troponin HS; Complete Time: 19:14 ca3 04/01 19:01 Order name: Manual Differential; Complete Time: 20:03 EDMS 04/01 20:03 Order name: CPK [facility] 04/01 18:30 Order name: XRAY Chest (1 view); Complete Time: 20:03 ca3 04/01 19:17 Order name: CT Chest For PE Angio; Complete Time: 20:03 [facility] 04/01 20:04 Order name: COVID-19 SARS RT PCR (Document "Date of Onset" if Symptomatic) [facility] 04/01 20:07 Order name: Blood Culture Adult (2) [facility] 04/01 20:25 Order name: Urine Dipstick-Ancillary; Complete Time: 20:50 EDMS 04/01 20:36 Order name: Urine --Ancillary (enter results) [facility] 04/01 18:30 Order name: EKG; Complete Time: 18:31 ms3 04/01 18:30 Order name: Cardiac monitoring; Complete Time: 19:26 ms3 04/01 18:30 Order name: EKG - Nurse/Tech; Complete Time: 19:17 ms3 04/01 18:30 Order name: IV Saline Lock; Complete Time: 19:17 ms3 04/01 18:30 Order name: Labs collected and sent; Complete Time: 19:17 ms3 04/01 18:30 Order name: O2 Per Protocol; Complete Time: 19:26 ms3 04/01 18:30 Order name: O2 Sat Monitoring; Complete Time: 19:25 ms3 04/01 20:03 Order name: Urine Dipstick-Ancillary (obtain specimen); Complete Time: 20:33 mh7 04/01 20:03 Order name: Urine Test (obtain specimen); Complete Time: 20:33 mh7 EC:33 Rate is 104 beats/min. Rhythm is regular. QRS [place] is Normal. Clinical impression: ms3 Sinus tachycardia with non-specific ST changes. Interpreted by me. Administered Medications: 21:35 Drug: NS 0.9% 1000 ml Route: IV; Rate: 1000 ml; Site: left antecubital; 3 04/02 00:28 Follow up: Response: No adverse reaction; IV Status: Completed infusion; IV Intake: ll3 1000ml 04/01 21:35 Drug: Zofran (Ondansetron) 4 mg Route: IVP; Site: left antecubital; 3 22:32 Follow up: Response: No adverse reaction 3 21:40 Drug: Rocephin (cefTRIAXone) 1 grams Route: IV; Rate: per protocol; Site: left [facility] antecubital; 22:31 Follow up: Response: No adverse reaction; IV Status: Completed infusion; IV Intake: ll3 100ml 21:49 Drug: Albuterol HFA Inhaler 2 puffs Route: Inhalation; 3 22:32 Follow up: Response: No adverse reaction 3 21:50 Drug: morphine 2 mg Route: IVP; Infused Over: 4 mins; Site: left antecubital; 3 22:32 Follow up: Response: No adverse reaction 3 22:55 Drug: AZITHromycin 500 mg Route: IVPB; Infused Over: 1 hrs; Site: left antecubital; 3 04/02 00:27 Follow up: Response: No adverse reaction; IV Status: Completed infusion; IV Intake: ll3 250ml Disposition Summary: 04/01/22 23:31 Discharge Ordered Location: Home [facility] Problem: new [facility] Symptoms: have improved [facility] Condition: Stable [facility] Diagnosis - Other pneumonia, unspecified organism [facility] Followup: [facility] - With: Private Physician - When: 1 - 2 days - Reason: Worsening of condition, Recheck today's complaints, Continuance of care, Re-evaluation by your physician Discharge Instructions: - Discharge Summary Sheet [facility] - Community-Acquired Pneumonia, Adult, [id number] [facility] Forms: - Medication Reconciliation Form [facility] - Thank You Letter [facility] - Antibiotic Education [facility] - Prescription Opioid Use [facility] Prescriptions: - albuterol sulfate 90 mcg/actuation Inhalation HFA aerosol inhaler - inhale 1 puff by INHALATION route every 4-6 hours As needed; 1 Inhaler; [facility] Refills: 0, Product Selection Permitted - Tessalon Perles 100 mg Oral Capsule - take 1 capsule by ORAL route every 8 hours As needed; 15 capsule; Refills: 0, [facility] Product Selection Permitted - Zithromax Z-Omar 250 mg Oral Tablet - take 1 tablet by ORAL route as directed for 5 days Day 1 - take two (2) tablets [facility] one time. Day 2, 3, 4 , 5 take one (1) tablet once daily.; 6 tablet; Refills: 0, Product Selection Permitted Signatures: Dispatcher [employer] Alphonse Troncoso, RN RN jb4 Gage Hallman DO DO ms3 Todd Guevara MD MD 7 Clarisa Delgado RN RN ll3
[2022-04-02 00:55] VITALS: TEMP 97.8
[2022-04-02 00:56] VITALS: O2SAT 100
[2022-04-02 00:59] VITALS: BP 118/64
--- NOTE | 2022-04-03 07:55 | EKG ---
Test Date: 2022-04-01 Test Time: 18:33:38 Hematology Technician: MISAEL MEASUREMENT RESULTS: Intervals: Rate: 104 VA: 122 QRSD: 82 QT: 340 QTc: 447 [place]: P: 15 VA: 122 QRS: 45 T: -6 INTERPRETIVE STATEMENTS: Sinus tachycardia Cannot rule out Inferior infarct, age undetermined T wave abnormality, consider anterior ischemia Abnormal ECG Compared to ECG 09/24/2019 22:09:02 T-wave abnormality now present Possible ischemia now present Sinus rhythm no longer present Myocardial infarct finding still present Electronically Signed On 04-03-22 07:50:44 CDT by Rayshawn Slatre
== END 2022-04-02 00:27 | disposition home or self-care (01) ==
LOC: ER 18:06
DX: J18.8 Other pneumonia, unspecified organism (principal); Z20.822 Contact with and (suspected) exposure to COVID-19
CPT/HCPCS: 36415; 71045; 71275; 80048; 81003; 81025; 82550; 84484; 85025; 85379; 87040; 93005; 96365; 96367; 96375; 99285; J0456; J2270; J2405; J7030; J7050; Q9967; U0003